=== PATIENT | female | born 1955 | race African-American/Black ===

== ENCOUNTER → 2016-09-28 | Outpatient (CLI) | payer OTHER ==
[2016-02-12 21:11] VITALS: BP 138/74
[~2016-09-28] MED LIST: ATOR20TA58 PO; CYAN1TAB5 SL; METF500T4 PO; MORP15TA PO; OXYC10TA PO; PROM25SU33 RC; SENN1TAB9 PO; VALS1TAB27 PO
--- NOTE | 2016-09-28 17:11 | KCIC ---
Bilateral digital screening mammograms with CAD: HISTORY COMPARISON Comparison is made to previous studies dated 09/19/2015 and 09/25/2014. FINDINGS Breast density category B. The skin and nipples show no abnormalities. No abnormal lymph nodes are seen in the axilla. The breast parenchyma shows scattered fibroglandular density. There continue be calcified and calcify nodules bilaterally consistent with degenerating fibroadenoma. There are no new dominant masses, suspicious calcifications or architectural distortions. Benign appearing calcifications are present IMPRESSION No evidence of malignancy. Recommend routine annual mammographic screening. This study was interpreted with the benefit of Computerized Aided Detection (CAD). Mammography is not 100% sensitive in detecting breast cancer. Therefore, a self breast exam and a clinical breast exam are very important. A negative mammogram does not negate a clinically suspicious finding and should not result in a delay in biopsying a clinically suspicious abnormality. BI-RADS category 2. Benign. This patient's information has been entered into a reminder system for the patient to be notified with the results of this examination and a target date for her next mammograms. Electronically signed by: Latisha Doan MD (Sep 28, 2016 17:10:17)
== END | disposition home or self-care (01) ==
LOC: KCIC MAMMO 10:13
PROVIDERS: ATTEND Nurse Practitioner Family
DX: Z12.31 Encounter for screening mammogram for malignant neoplasm of breast (principal)
CPT/HCPCS: G0202; 77067

== ENCOUNTER 2017-03-02 21:19 | Emergency (ER) | payer OTHER ==
[~2017-03-02] VITALS: Ht 160 cm; Wt 106.6 kg
[2017-03-02] MEDS ORDERED: DEXAMETHASONE SOD PHOS 20 MG/5 ML VIAL. IV ONE (21:45)
[2017-03-02] MEDS ORDERED: ONDANSETRON PF 4 MG/2 ML VIAL. IV ONE (21:45)
[2017-03-02] MEDS ORDERED: KETOROLAC TROMETHAMINE 30 MG/ML INJ. IV ONE (21:45)
[2017-03-02] MEDS ORDERED: diphenhydrAMINE 50 MG/ML VIAL IVP ONE (21:45)
[2017-03-02] MEDS ORDERED: IV NORMAL SALINE 1000ML BAG 1,000 ML IV ONE (21:45)
[2017-03-02] MEDS ORDERED: DIPH25CA58 PO (22:59)
[2017-03-02] MEDS ORDERED: ONDA4TAB10 PO (22:59)
[2017-03-02] MEDS ORDERED: NAPR500T PO (22:59)
--- NOTE | 2017-03-02 22:59 | PHYS DOC ---
Past Medical History Past Medical History: Anxiety, Diabetes-Type II, High Cholesterol, Hypertension Past Surgical History: Knee Replacement, Other Additional Past Surgical Histo: RIGHT KNEE SX, R&L BREAST BX; left knee Alcohol Use: Rarely Drug Use: None Adult General Chief Complaint Chief Complaint: HEADACHE HPI HPI Is a pleasant 62-year-old female with a week long history of continuous headache. She describes a headache as throbbing and aching beginning at the base of her neck with radiation to the top of her scalp and temples bilaterally is not worse of life or sudden onset in nature. She denies any problems with vision, problems with speech, weakness in her upper or lower extremities, denies any numbness and tingling in her upper and lower extremities denies any direct trauma. Patient also denies any URI symptoms like runny nose cough congestion or ear pain ear drainage tinnitus or eye discomfort. Patient was seen by an diesel engine specialist recently who prescribed an eyedrop for her. Her symptoms are not improved with his therapy. She denies any fevers, denies any chills, denies any nausea she does have some photophobia and audiophobia which does increase her pain. The pain is worsened by exertion and bending over. Pain presently is a 10 of 10. She mentioned in her history that her provider wanted to complete an MRI study of her brain although she had not gotten approval through his insurance company. She was hoping that they could be done today. Review of Systems Review of Systems Constitutional: Denies fever or chills [] Eyes: Denies change in visual acuity, redness, or eye pain [] HENT: Denies nasal congestion or sore throat [] Respiratory: Denies cough or shortness of breath [] Cardiovascular: No additional information not addressed in HPI [] GI: Denies abdominal pain, denies vomiting bloody stools or diarrhea. But she does complain of intermittent nausea : Denies dysuria or hematuria [] Musculoskeletal: Denies back pain or joint pain [] Integument: Denies rash or skin lesions [] Neurologic: sHe does complain of headache Endocrine: Denies polyuria or polydipsia [] Current Medications Current Medications Current Medications Medications (Trade) Dose Ordered Sig/Jossie Start Time Stop Time Status Last Admin Dose Admin Dexamethasone Sodium Phosphate (Decadron) 10 mg 1X ONCE 03/02/17 21:45 03/02/17 21:50 DC 03/02/17 22:10 10 MG Diphenhydramine HCl (Benadryl) 50 mg 1X ONCE 03/02/17 21:45 03/02/17 21:50 DC 03/02/17 22:10 50 MG Ketorolac Tromethamine (Toradol) 30 mg 1X ONCE 03/02/17 21:45 03/02/17 21:50 DC 03/02/17 22:10 30 MG Ondansetron HCl (Zofran) 4 mg 1X ONCE 03/02/17 21:45 03/02/17 21:50 DC 03/02/17 22:10 4 MG Sodium Chloride 1,000 ml @ 1,000 mls/hr 1X ONCE 03/02/17 21:45 03/02/17 22:44 DC 03/02/17 22:10 1,000 MLS/HR Allergies Allergies Allergies Coded Allergies Type Severity Reaction Last Updated Verified codeine Adverse Reaction Intermediate VOMITING 01/22/15 No Physical Exam Physical Exam This patient's vital signs were reviewed by me it is documented that she is mildly hypertensive but this is chronic in nature for this patient otherwise normal vital signs. Constitutional: Well developed, well nourished, no acute distress, non-toxic appearance. [] HENT: Normocephalic, atraumatic, bilateral external ears normal, oropharynx moist, no oral exudates, nose normal. [] Eyes: PERRLA, EOMI, conjunctiva normal, no discharge. She does demonstrate arcus senilis but no mid-fixed pupil dilation patient has no tenderness to palpation over the temporal arteries. Neck: Normal range of motion, supple, no stridor. She does have tenderness to palpation over the trapezius as it inserts onto the base of the skull on the left. It's pain is exactly is his experience in the past. There is no midline tenderness palpation [] Cardiovascular:Heart rate regular rhythm, no murmur [] Lungs & Thorax: Bilateral breath sounds clear to auscultation [] Skin: Warm, dry, no erythema, no rash. [] Back: No tenderness, no CVA tenderness. [] Extremities: No tenderness, no cyanosis, no clubbing, ROM intact, no edema. [] Neurologic: Alert and oriented X 3, normal motor function, normal sensory function, no focal deficits noted. [] Psychologic: Affect normal, judgement normal, mood normal. [] Current Patient Data Vital Signs Vital Signs Date Time Temp Pulse Resp B/P (MAP) Pulse Ox O2 Delivery O2 Flow Rate FiO2 03/02/17 23:00 75 20 148/76 (100) 99 Room Air 03/02/17 21:33 98.4 98.4 Radiology/Procedures Radiology/Procedures [] Course & Med Decision Making Course & Med Decision Making Pertinent Labs and Imaging studies reviewed. (See chart for details) Upon patient arrival patient's history and physical exam revealed probably a tension-like headache. This is not worse of life and sudden onset she is a normal neuro exam initial presentation. Patient denied discussed needing an MRI at this time that she was going to get completed at this time. I believe there is no clinical indication for emergently during her ER visit today. Patient has agreed to allow me to try some IV medications nonnarcotic in nature to address her headache. 10 PM she has just received the medications 10:54 PM patient's are equal and markedly better. She is agreed to follow up with her primary care doctor to schedule attempted outpatient MRI and referral to neurology for her headaches. 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 I do not believe she is having aneurysm, subarachnoid hemorrhage, intracranial tumor, doubt glaucoma, temporal arteritis, trauma, subdural hematoma, patient does not demonstrate any signs of sinusitis or otitis media otitis externa or other ENT infection. Impression: Tension headache, high blood pressure Disposition: PCP follow-up with referral to neurology. [] Dragon Disclaimer Dragon Disclaimer This electronic medical record was generated, in whole or in part, using a voice recognition dictation system. Departure Departure Impression: Primary Impression: Anxiety Additional Impression: Tension headache Disposition: 01 HOME, SELF-CARE Condition: IMPROVED Referrals: SANDRA CHINO APRN (PCP) Patient Instructions: Hypertension, Tension Headache Additional Instructions: Please return for any new or increasing symptoms, new focal neurologic deficits or if you have any questions or concerns. Scripts Ondansetron (ZOFRAN ODT) 4 Mg Tab.rapdis 4 MG PO BID Y for NAUSEA/VOMITING for 5 Days, #10 TAB Prov: ELLIOTT RODRIGUEZ MD 03/02/17 Naproxen (NAPROSYN) 500 Mg Tablet 1 TAB PO BID, #14 TAB 1 Refill Prov: ELLIOTT RODRIGUEZ MD 03/02/17 Diphenhydramine Hcl (BENADRYL) 25 Mg Capsule 1 CAP PO QHS, #30 CAP 1 Refill Prov: ELLIOTT RODRIGUEZ MD 03/02/17 Problem Qualifiers ELLIOTT RODRIGUEZ MD Mar 02, 2017 22:59
[2017-03-02 23:00] VITALS: BP 148/76
== END 2017-03-02 23:00 | disposition home or self-care (01) ==
LOC: ER 21:19
DX: G44.209 Tension-type headache, unspecified, not intractable (principal); F41.9 Anxiety disorder, unspecified; I10 Essential (primary) hypertension; E11.9 Type 2 diabetes mellitus without complications; E78.00 Pure hypercholesterolemia, unspecified; Z88.5 Allergy status to narcotic agent; Z96.659 Presence of unspecified artificial knee joint
CPT/HCPCS: 96361; 96374; 96375; 99285; J1100; J1200; J1885; J2405; J7030

== ENCOUNTER → 2017-03-09 | Outpatient (CLI) | payer OTHER ==
[2017-03-02 23:00] VITALS: BP 148/76
[~2017-03-09] MED LIST changes: +DIPH25CA58 PO; +NAPR500T PO; +ONDA4TAB10 PO
--- NOTE | 2017-03-09 16:24 | KCIC ---
MRI of the brain without contrast 03/09/2017 Clinical History: Headache and neck pain for 2 weeks. Technique: Unenhanced T1-weighted sagittal and axial, T2-weighted axial and coronal and FLAIR, gradient echo and diffusion-weighted axial images of the brain were obtained. Findings: No previous imaging studies are available for comparison. There is generalized parenchymal atrophy. Patchy and several small scattered areas of increased signal intensity are seen within the periventricular and subcortical white matter of both cerebral hemispheres on the FLAIR and T2-weighted images consistent with areas of mild small vessel ischemic disease. No acute parenchymal abnormality is seen. No extra-axial fluid collection is seen. There is no MRI evidence of acute ischemia/infarction. A 2 cm mucous retention cyst is seen involving the left maxillary sinus. A 7 mm mucous retention cyst is seen involving the sphenoid sinus. Mild mucosal thickening in seen scattered throughout the paranasal sinuses. There are minimal bilateral mastoid effusions. Normal flow voids are seen within the major vascular structures surrounding the brain parenchyma. Impression: No acute parenchymal abnormality is seen. Electronically signed by: Sathya Dobbins MD (03/09/2017 4:20 PM) [id number]
== END | disposition home or self-care (01) ==
LOC: KCIC MRI 14:55
PROVIDERS: ATTEND Family Medicine
DX: R51 Headache (principal); M54.12 Radiculopathy, cervical region
CPT/HCPCS: 70551

== ENCOUNTER 2017-06-13 03:31 | Emergency (ER) | payer OTHER ==
[~2017-06-13] VITALS: Ht 160 cm; Wt 106.6 kg
[2017-06-13 03:35] VITALS: BP 135/80
[2017-06-13] MEDS ORDERED: FLUORESCEIN OPHTH TEST STRIP. ONE (04:07)
--- NOTE | 2017-06-13 04:18 | PHYS DOC ---
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 Sees an eye doctor and takes antihistamine drops when necessary. Hasn't taken them for several months. Denies eye drainage or trauma. Review of Systems Review of Systems Constitutional: Denies fever or chills [] Eyes: Denies change in visual acuity, redness, or eye pain [] HENT: Denies nasal congestion or sore throat [] Respiratory: Denies cough or shortness of breath [] Cardiovascular: No additional information not addressed in HPI [] GI: Denies abdominal pain, nausea, vomiting, bloody stools or diarrhea [] : Denies dysuria or hematuria [] Musculoskeletal: Denies back pain or joint pain [] Integument: Denies rash or skin lesions [] Neurologic: Denies headache, focal weakness or sensory changes [] Endocrine: Denies polyuria or polydipsia [] Current Medications Current Medications Current Medications Medications (Trade) Dose Ordered Sig/Jossie Start Time Stop Time Status Last Admin Dose Admin Fluorescein Sodium (Ful-Maris) 1 strip STK-MED ONCE 06/13/17 04:07 06/13/17 04:08 DC Tetracaine HCl (Tetracaine) 1 drop 1X ONCE 06/13/17 04:30 06/13/17 04:31 06/13/17 04:09 1 DROP Allergies Allergies Allergies Coded Allergies Type Severity Reaction Last Updated Verified codeine Adverse Reaction Intermediate VOMITING 01/22/15 No Physical Exam Physical Exam Constitutional: Well developed, well nourished, no acute distress, non-toxic appearance. [] HENT: Normocephalic, atraumatic, bilateral external ears normal, oropharynx moist, no oral exudates, nose normal. [] Eyes: PERRLA, EOMI, conjunctiva normal, no discharge. Left eye shows an injected conjunctiva. Intraocular pressures were measured normal at 14 and equal. Fluorescein strip and dye instilled no uptake. Anterior chamber was clear no foreign body seen. Patient's symptoms resolved when the numbing medicine when in. No photophobia. Able to count fingers.[] Neck: Normal range of motion, no tenderness, supple, no stridor. [] Cardiovascular:Heart rate regular rhythm, no murmur [] Lungs & Thorax: Bilateral breath sounds clear to auscultation [] Abdomen: Bowel sounds normal, soft, no tenderness, no masses, no pulsatile masses. [] Skin: Warm, dry, no erythema, no rash. [] Back: No tenderness, no CVA tenderness. [] Extremities: No tenderness, no cyanosis, no clubbing, ROM intact, no edema. [] Neurologic: Alert and oriented X 3, normal motor function, normal sensory function, no focal deficits noted. [] Psychologic: Affect normal, judgement normal, mood normal. [] Current Patient Data Vital Signs Vital Signs Date Time Temp Pulse Resp B/P (MAP) Pulse Ox O2 Delivery O2 Flow Rate FiO2 06/13/17 03:35 98.4 88 22 98 Room Air 98.4 EKG EKG [] Radiology/Procedures Radiology/Procedures [] Course & Med Decision Making Course & Med Decision Making Pertinent Labs and Imaging studies reviewed. (See chart for details) Patient has diabetes this may represent retinopathy or floaters and I recommend she get follow-up no later than Wednesday with her primary eye doctor.[] Dragon Disclaimer Dragon Disclaimer This electronic medical record was generated, in whole or in part, using a voice recognition dictation system. Departure Departure Impression: Primary Impression: Left eye pain Disposition: HOME, SELF-CARE Condition: STABLE Referrals: SHAHEED DUNCAN MD (PCP) LUKAS PÉREZ MD Jun 13, 2017 04:18
[2017-06-13] MEDS ORDERED: FLUORESCEIN OPHTH TEST STRIP. OU ONE (04:30)
[2017-06-13] MEDS ORDERED: TETRACAINE 0.5% OPHTH SOLUTION 4ML BOTTLE. OS ONE (04:30)
== END 2017-06-13 04:26 | disposition home or self-care (01) ==
LOC: ER 03:31
DX: H57.12 Ocular pain, left eye (principal); F41.9 Anxiety disorder, unspecified; E78.00 Pure hypercholesterolemia, unspecified; I10 Essential (primary) hypertension; E11.36 Type 2 diabetes mellitus with diabetic cataract; Z88.5 Allergy status to narcotic agent
CPT/HCPCS: 99283

== ENCOUNTER → 2017-07-01 | Outpatient (CLI) | payer OTHER ==
[2017-06-13 03:35] VITALS: BP 135/80
[~2017-07-01] MED LIST changes: +NAPR-683 PO; -NAPR500T PO
[2017-07-01 15:16] LABS: BASO % 1 % (0-3); EOS % 2 % (0-3); HEMATOCRIT 35.3 % (36.0-47.0); HEMOGLOBIN 10.8 g/dL (12.0-15.5); LYMPH # 3.8 x10^3/uL (1.0-4.8); LYMPH % 52 % (24-48); MEAN CORPUSCULAR HEMOGLOBIN 21 pg (25-35); MEAN CORPUSCULAR HGB CONC 31 g/dL (31-37); MEAN CORPUSCULAR VOLUME 69 fL (79-100); MONO % 7 % (0-9); NEUT % 39 % (31-73); PLATELET COUNT 223 x10^3/uL (140-400); RED BLOOD COUNT 5.15 x10^6/uL (3.50-5.40); RED CELL DISTRIBUTION WIDTH 18.7 % (11.5-14.5); WHITE BLOOD COUNT 7.3 x10^3/uL (4.0-11.0)
[2017-07-01 15:33] LABS: ANISOCYTOSIS SLIGHT; HYPOCHROMIA MOD; MICROCYTOSIS MOD; PLT ESTIMATE ADEQUATE (ADEQUATE); POIKILOCYTOSIS SLIGHT
[2017-07-01 15:34] LABS: OVALOCYTES OCC; TARGET CELLS FEW
[2017-07-01 15:40] LABS: ALBUMIN 3.8 g/dL (3.4-5.0); CALCIUM 9.5 mg/dL (8.5-10.1); CREATININE 0.7 mg/dL (0.6-1.0); GFR 101.9; POTASSIUM 3.7 mmol/L (3.5-5.1); TOTAL BILIRUBIN 0.4 mg/dL (0.2-1.0); TOTAL PROTEIN 7.8 g/dL (6.4-8.2)
== END | disposition home or self-care (01) ==
LOC: LAB 15:03
PROVIDERS: ATTEND Psychiatry & Neurology Neurology
DX: G43.019 Migraine without aura, intractable, without status migrainosus (principal)
CPT/HCPCS: 36415; 80053; 85025; 85651

== ENCOUNTER → 2017-11-23 | Outpatient (CLI) | payer OTHER | END | disposition home or self-care (01) | LOC: KCIC MAMMO 09:03 | DX: Z12.31 Encounter for screening mammogram for malignant neoplasm of breast (principal) | CPT/HCPCS: 77067 ==

== ENCOUNTER 2018-03-10 23:15 | Emergency (ER) | payer OTHER ==
[2018-03-11 01:48] LABS: ADD MAN DIFF? NO
[2018-03-11 01:51] LABS: BASO # 0.1 x10^3/uL (0.0-0.2); BASO % 1 % (0-3); EOS # 0.2 x10^3/uL (0.0-0.7); EOS % 2 % (0-3); HEMATOCRIT 34.2 % (36.0-47.0); HEMOGLOBIN 10.8 g/dL (12.0-15.5); LYMPH # 3.8 x10^3/uL (1.0-4.8); LYMPH % 47 % (24-48); MEAN CORPUSCULAR HEMOGLOBIN 21 pg (25-35); MEAN CORPUSCULAR HGB CONC 32 g/dL (31-37); MEAN CORPUSCULAR VOLUME 67 fL (79-100); MONO # 0.5 x10^3/uL (0.0-1.1); MONO % 6 % (0-9); NEUT # 3.5 x10^3uL (1.8-7.7); NEUT % 44 % (31-73); PLATELET COUNT 229 x10^3/uL (140-400); RED BLOOD COUNT 5.07 x10^6/uL (3.50-5.40); RED CELL DISTRIBUTION WIDTH 20.1 % (11.5-14.5)
[2018-03-11 02:02] LABS: ANION GAP 7 (6-14); BLOOD UREA NITROGEN 16 mg/dL (7-20); BUN/CREATININE RATIO 23 (6-20); CALCIUM 9.7 mg/dL (8.5-10.1); CARBON DIOXIDE 31 mmol/L (21-32); CHLORIDE 105 mmol/L (98-107); CREATININE 0.7 mg/dL (0.6-1.0); GFR 101.6; GLUCOSE 135 mg/dL (70-99); POTASSIUM 3.9 mmol/L (3.5-5.1); SODIUM 143 mmol/L (136-145)
[2018-03-11 02:09] LABS: ALBUMIN 3.6 g/dL (3.4-5.0); ALBUMIN/GLOBULIN RATIO 0.9 (1.0-1.7); ALK PHOS 100 U/L (46-116); ALT (SGPT) 21 U/L (14-59); AST (SGOT) 14 U/L (15-37); TOTAL BILIRUBIN 0.2 mg/dL (0.2-1.0); TOTAL PROTEIN 7.6 g/dL (6.4-8.2)
[2018-03-11 02:18] LABS: TROPONINI < 0.017 ng/mL (0.000-0.055)
[2018-03-11 02:19] LABS: CKMB MASS < 0.5 ng/mL (0.0-3.6); CREATINE KINASE 131 U/L (26-192)
[2018-03-11 04:48] LABS: PLT ESTIMATE ADEQUATE (ADEQUATE)
[2018-03-11 04:49] LABS: ANISOCYTOSIS MOD; HYPOCHROMIA MOD; MICROCYTOSIS MOD
== END 2018-03-11 05:10 | disposition home or self-care (01) ==
LOC: ER 23:15
DX: R00.2 Palpitations (principal); I10 Essential (primary) hypertension; E11.9 Type 2 diabetes mellitus without complications; Z88.5 Allergy status to narcotic agent
CPT/HCPCS: 36415; 80053; 82553; 83735; 84484; 85025; 93005; 99285-25

== ENCOUNTER → 2018-04-25 | Outpatient (CLI) | payer OTHER ==
[2018-03-11 04:19] VITALS: BP 133/61
[~2018-04-25] MED LIST changes: +METF500T16 PO; -METF500T4 PO
--- NOTE | 2018-04-25 16:53 | KCIC ---
3 view sacrum HISTORY: Coccyx pain for one week. No known injury. FINDINGS: Mild irregularity of the distal sacrum on the lateral view. Note is made of a transitional vertebral body at the lumbosacral junction. Calcifications in the pelvis may be due to uterine fibroid. There are also phleboliths and vascular calcification. IMPRESSION: Mild irregularity of the distal sacrum on the lateral view, could be a nondisplaced fracture. CT or MR scan of the sacrum could further evaluate. Electronically signed by: Shivam Lewis MD (04/25/2018 4:50 PM) [facility]
== END | disposition home or self-care (01) ==
LOC: KCIC 14:54
PROVIDERS: ATTEND Nurse Practitioner Family
DX: M53.3 Sacrococcygeal disorders, not elsewhere classified (principal); I87.8 Other specified disorders of veins; I10 Essential (primary) hypertension; E11.9 Type 2 diabetes mellitus without complications; E78.00 Pure hypercholesterolemia, unspecified; G43.019 Migraine without aura, intractable, without status migrainosus; Z96.652 Presence of left artificial knee joint; Z88.5 Allergy status to narcotic agent
CPT/HCPCS: 72220

== ENCOUNTER 2018-05-13 10:58 | Inpatient (IN) | payer OTHER ==
[~2018-05-13] VITALS: Ht 160 cm; Wt 106.6 kg
--- NOTE | 2018-05-13 11:59 | PHYS DOC ---
Past Medical History Past Medical History: Diabetes-Type II, Hypertension Additional Past Medical Histor: cataracts Past Surgical History: No Surgical History Additional Past Surgical Histo: RIGHT KNEE SX, R&L BREAST BX; left knee Alcohol Use: None Drug Use: None Adult General Chief Complaint Chief Complaint: DIZZY/LIGHT HEADED HPI HPI Patient is a 63 year old diabetic who presents with intermittent dizziness upon waking today. Dizziness is described as being off balance is associated with nausea. Symptoms are significant improved with remaining still and are worse when standing and moving head.. Patient states symptoms first noticed upon awaking arising to stand. Patient fell backwards landing back on the bed. Denies headache, tinnitus, loss of hearing. Denies neck pain, palpitations, chest pain or shortness of breath. No fever, chills, sweats. Abdominal pain, flank pain, constipation or diarrhea. No range of motion vision, or focal extremity weakness or loss of sensation. No other acute symptoms or complaints. [] Review of Systems Review of Systems Review symptoms as per history of present illness. All other review symptoms are negative. All other systems were reviewed and found to be within normal limits, except as documented in this note. Current Medications Current Medications Current Medications Medications (Trade) Dose Ordered Sig/Jossie Start Time Stop Time Status Last Admin Dose Admin Lorazepam (Ativan) 1 mg 1X ONCE 05/13/18 13:00 05/13/18 13:01 DC 05/13/18 12:53 1 MG Allergies Allergies Allergies Coded Allergies Type Severity Reaction Last Updated Verified codeine Adverse Reaction Intermediate VOMITING 01/22/15 No Physical Exam Physical Exam Constitutional: Well developed, well nourished, no acute distress, non-toxic appearance. [] HENT: Normocephalic, atraumatic, bilateral external ears normal, nose normal. [] Eyes: PERRLA, EOMI, conjunctiva normal, no discharge. [] Neck: Normal range of motion, no tenderness. [] Cardiovascular:Heart rate regular rhythm, no murmur [] Lungs & Thorax: Bilateral breath sounds clear. [] Abdomen: Bowel sounds normal, soft, no tenderness. [] Skin: Warm, dry. [] Back: No tenderness. [] Extremities: No tenderness, no cyanosis, no clubbing, ROM intact, no edema. [] Neurologic: Alert and oriented X 3, normal motor function, normal sensory function, no focal deficits noted. [] Psychologic: Affect normal, judgement normal, mood normal. [] Current Patient Data Vital Signs Vital Signs Date Time Temp Pulse Resp B/P (MAP) Pulse Ox O2 Delivery O2 Flow Rate FiO2 05/13/18 11:15 97.7 67 22 167/77 (107) 99 Room Air 97.7 Lab Values Laboratory Tests Test 05/13/18 10:46 05/13/18 12:22 White Blood Count 5.8 x10^3/uL (4.0-11.0) Red Blood Count 4.95 x10^6/uL (3.50-5.40) Hemoglobin 10.7 g/dL (12.0-15.5) L Hematocrit 32.6 % (36.0-47.0) L Mean Corpuscular Volume 66 fL (79-100) L Mean Corpuscular Hemoglobin 22 pg (25-35) L Mean Corpuscular Hemoglobin Concent 33 g/dL (31-37) Red Cell Distribution Width 18.8 % (11.5-14.5) H Platelet Count 214 x10^3/uL (140-400) Neutrophils (%) (Auto) 52 % (31-73) Lymphocytes (%) (Auto) 40 % (24-48) Monocytes (%) (Auto) 6 % (0-9) Eosinophils (%) (Auto) 1 % (0-3) Basophils (%) (Auto) 2 % (0-3) Neutrophils # (Auto) 3.0 x10^3uL (1.8-7.7) Lymphocytes # (Auto) 2.3 x10^3/uL (1.0-4.8) Monocytes # (Auto) 0.3 x10^3/uL (0.0-1.1) Eosinophils # (Auto) 0.0 x10^3/uL (0.0-0.7) Basophils # (Auto) 0.1 x10^3/uL (0.0-0.2) Platelet Estimate Pending Sodium Level 143 mmol/L (136-145) Potassium Level 3.5 mmol/L (3.5-5.1) Chloride Level 105 mmol/L (98-107) Carbon Dioxide Level 30 mmol/L (21-32) Anion Gap 8 (6-14) Blood Urea Nitrogen 12 mg/dL (7-20) Creatinine 0.5 mg/dL (0.6-1.0) L Estimated GFR (Cockcroft-Gault) 149.8 BUN/Creatinine Ratio 24 (6-20) H Glucose Level 162 mg/dL (70-99) H Calcium Level 9.4 mg/dL (8.5-10.1) Total Bilirubin 0.4 mg/dL (0.2-1.0) Aspartate Amino Transferase (AST) 11 U/L (15-37) L Alanine Aminotransferase (ALT) 22 U/L (14-59) Alkaline Phosphatase 93 U/L (46-116) Troponin I Quantitative < 0.017 ng/mL (0.000-0.055) Total Protein 7.2 g/dL (6.4-8.2) Albumin 3.1 g/dL (3.4-5.0) L Albumin/Globulin Ratio 0.8 (1.0-1.7) L Thyroid Stimulating Hormone (TSH) 0.024 uIU/mL (0.358-3.74) L Urine Collection Type Unknown Urine Color Yellow Urine Clarity Clear Urine pH 6.0 Urine Specific Maurice 1.025 Urine Protein Negative mg/dL (NEG-TRACE) Urine Glucose (UA) Negative mg/dL (NEG) Urine Ketones (Stick) Negative mg/dL (NEG) Urine Blood Negative (NEG) Urine Nitrite Negative (NEG) Urine Bilirubin Negative (NEG) Urine Urobilinogen Dipstick 1.0 mg/dL (0.2 mg/dL) Urine Leukocyte Esterase Negative (NEG) Urine RBC 0 /HPF (0-2) Urine WBC 1-4 /HPF (0-4) Urine Squamous Epithelial Cells Mod /LPF Urine Bacteria 0 /HPF (0-FEW) Urine Mucus Mod /LPF Laboratory Tests 05/13/18 10:46 Laboratory Tests 05/13/18 10:46 EKG EKG [EKG: Reviewed] Radiology/Procedures Radiology/Procedures [CT head: NAD] Course & Med Decision Making Course & Med Decision Making Pertinent Labs and Imaging studies reviewed. (See chart for details) [No focal neurologic symptoms on exam. Patient walks with steady gait. Does complain of meclizine vertigo, symptoms improved with Ativan. Will recommend meclizine when necessary, and close PCP follow-up. Home safety instructions and fall precautions reviewed. Patient and daughter verbalized understanding agreement discharge instructions prior to departure.] Dragon Disclaimer Dragon Disclaimer This electronic medical record was generated, in whole or in part, using a voice recognition dictation system. Departure Departure Impression: Primary Impression: Dizziness Disposition: 01 HOME, SELF-CARE Condition: GOOD Referrals: SANDRA CHINO APRN (PCP) Patient Instructions: Vertigo, [id number] Additional Instructions: Please increase fluids and take meclizine as needed for dizziness. Please be careful when standing and walking as you are increased risk of fall and injury. Return to the ED if new or worsening symptoms. Scripts Meclizine Hcl (MECLIZINE HCL) 25 Mg Tablet 1 TAB PO TID, #20 TAB Prov: MONTRELL MENDEZ DO 05/13/18 MONTRELL MENDEZ DO May 13, 2018 11:59
[2018-05-13 12:24] LABS: BASO # 0.1 x10^3/uL (0.0-0.2); BASO % 2 % (0-3); EOS % 1 % (0-3); HEMATOCRIT 32.6 % (36.0-47.0); HEMOGLOBIN 10.7 g/dL (12.0-15.5); LYMPH # 2.3 x10^3/uL (1.0-4.8); LYMPH % 40 % (24-48); MEAN CORPUSCULAR HEMOGLOBIN 22 pg (25-35); MEAN CORPUSCULAR HGB CONC 33 g/dL (31-37); MEAN CORPUSCULAR VOLUME 66 fL (79-100); MONO # 0.3 x10^3/uL (0.0-1.1); MONO % 6 % (0-9); NEUT % 52 % (31-73); PLATELET COUNT 214 x10^3/uL (140-400); RED BLOOD COUNT 4.95 x10^6/uL (3.50-5.40); RED CELL DISTRIBUTION WIDTH 18.8 % (11.5-14.5); WHITE BLOOD COUNT 5.8 x10^3/uL (4.0-11.0)
--- NOTE | 2018-05-13 12:26 | RAD ---
CT HEAD WO CONTRAST Indication: quiros dizzy htn no prev Exposure: One or more of the following individualized dose reduction techniques were utilized for this examination: 1. Automated exposure control 2. Adjustment of the mA and/or kV according to patient size 3. Use of iterative reconstruction technique. Comparison: None are available. Contrast: None FINDINGS: Posterior fossa is unremarkable. No evidence of acute intracranial hemorrhage or abnormal extra-axial fluid collection. No evidence of mass effect or midline shift. Mildly prominent ventricles and sulci compatible with atrophy. Mild arterial calcifications. Visualized orbits are unremarkable. Rounded opacity in the partially seen left maxillary sinus compatible with a polyp or mucous retention cyst. Smaller similar structure identified in the right sphenoid sinus. No acute calvarial abnormality. Impression: 1. Negative for acute intracranial hemorrhage or mass effect. 2. Left maxillary right sphenoid sinus nodules likely polyps or mucous retention cysts. Polypoid mucosal thickening less likely. Electronically signed by: Shivam Lewis MD (05/13/2018 12:22 PM) [facility]
--- NOTE | 2018-05-13 12:32 | RAD ---
EXAM: CHEST 1 VIEW History: Nausea, dizziness COMPARISON: 02/12/2016 TECHNIQUE: Single portable radiograph of the chest FINDINGS: The cardiac silhouette is unremarkable. The lungs are clear bilaterally. The costophrenic sulci are clear and well demarcated. IMPRESSION: No radiographic evidence of an acute cardiopulmonary process. Electronically signed by: Michael Reveles MD (05/13/2018 12:28 PM) [id number]
[2018-05-13 12:34] LABS: BILIRUBIN,URINE NEGATIVE (NEG); CLARITY,URINE CLEAR; COLOR,URINE YELLOW; NITRITE,URINE NEGATIVE (NEG); PROTEIN,URINE NEGATIVE (NEG-TRACE)
[2018-05-13 12:38] LABS: CALCIUM 9.4 mg/dL (8.5-10.1); CREATININE 0.5 mg/dL (0.6-1.0); GFR 149.8; POTASSIUM 3.5 mmol/L (3.5-5.1)
[2018-05-13 12:44] LABS: ALBUMIN 3.1 g/dL (3.4-5.0); ALBUMIN/GLOBULIN RATIO 0.8 (1.0-1.7); TOTAL BILIRUBIN 0.4 mg/dL (0.2-1.0); TOTAL PROTEIN 7.2 g/dL (6.4-8.2)
[2018-05-13 12:50] LABS: SQUAMOUS EPITHELIAL CELL,UR MOD /LPF
[2018-05-13 12:51] LABS: BACTERIA,URINE 0 /HPF (0-FEW); RBC,URINE 0 /HPF (0-2)
[2018-05-13] MEDS ORDERED: MECL25TA3 PO (13:26)
--- NOTE | 2018-05-13 13:32 | EKG ---
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
[2018-05-13 13:53] LABS: ANISOCYTOSIS SLIGHT; HYPOCHROMIA MOD; MICROCYTOSIS SLIGHT; PLT ESTIMATE ADEQUATE (ADEQUATE)
[2018-05-13 13:54] LABS: TARGET CELLS FEW
[2018-05-13] MEDS: IV NORMAL SALINE 1000ML BAG 1,000 ML IV SCH ×2 (15:36→22:47)
[2018-05-13] MEDS ORDERED: ONDANSETRON PF 4 MG/2 ML VIAL. IV PRN (15:45)
[2018-05-13] MEDS: MECLIZINE HCL 12.5 MG TABLET. PO SCH ×2 (15:52→20:23)
[2018-05-13] MEDS ORDERED: CLON0.5T PO (16:00)
[2018-05-13] MEDS ORDERED: AMLO5TAB7 PO (16:00)
[2018-05-13 16:48] VITALS: BP 134/67
--- NOTE | 2018-05-13 18:40 | HP ---
ADMIT DATE: 05/13/2018 CHIEF COMPLAINT: Dizziness. HISTORY OF PRESENT ILLNESS: The patient is a pleasant 63-year-old female who presented to the ER with dizziness. They gave her some Antivert and fluids. They thought she is going to able to get home, but then, she stood up and got dizzy and nauseated. I discussed the case with ER physician. We decided to go ahead admit her and consult Dr. Booker for a second opinion. PAST MEDICAL HISTORY: Diabetes, hypertension, cataracts, knee surgery, breast biopsy. ALLERGIES: CODEINE. FAMILY HISTORY: Hypertension. SOCIAL HISTORY: She is retired. She does not drink, smoke or take drugs. Has 2 daughters and 1 son. MEDICATIONS: Reviewed, please refer to the MRAD. REVIEW OF SYSTEMS: GENERAL: No history of weight change, weakness or fevers. SKIN: No bruising, hair changes or rashes. EYES: No blurred, double or loss of vision. NOSE AND THROAT: No history of nosebleeds, hoarseness or sore throat. HEART: No history of palpitations, chest pain or shortness of breath on exertion. LUNGS: Denies cough, hemoptysis, wheezing or shortness of breath. GASTROINTESTINAL: Denies changes in appetite, nausea, vomiting, diarrhea or constipation. GENITOURINARY: No history of frequency, urgency, hesitancy or nocturia. NEUROLOGIC: She complains of dizziness. PSYCHIATRIC: No history of panic, anxiety or depression. ENDOCRINE: No history of heat or cold intolerance, polyuria or polydipsia. EXTREMITIES: Denies muscle weakness, joint pain, pain on walking or stiffness. PHYSICAL EXAMINATION: VITAL SIGNS: Temperature afebrile, pulse 70, respirations 18, blood pressure 134/67, O2 sat 99% on room air. GENERAL: She is alert, cooperative. HEART: Distant S1, S2. ABDOMEN: Soft, a little distended. EXTREMITIES: Trace edema. SKIN: No obvious rashes. ENDOCRINE: No thyromegaly. LYMPHATICS: No cervical nodes. HEMATOPOIETIC: No bruising. LABORATORY DATA: Hematology: Her hemoglobin is a little low at 10.7, but otherwise, her CBC is normal. Electrolytes are normal other than a slightly low creatinine of 0.5, glucose is a little high at [address] troponin is 0. CT of the head was negative other than some maxillary polyps and maybe sinusitis. Chest x-ray was negative. Urinalysis negative. ASSESSMENT AND PLAN: Vertigo, suspect vestibulitis with the inner ear disturbance. The patient has been admitted. We will give her p.r.n. Antivert, consult Dr. Booker. I suspect she will get an MRI of the brain and we will await Dr. Booker to opinion on that. For now, we will get her on her home medications, some IV fluids, p.r.n. meclizine. EVANS DORAN DO DR: LARRY/angela JOB#: [id number] / [id number] SANDRA Quarles APRN
[2018-05-13 19:46] VITALS: BP 140/75
[2018-05-13] MEDS ORDERED: clonazePAM 0.5 MG TABLET PO PRN (22:15)
[2018-05-13] MEDS ORDERED: DEXTROSE 50% 25 GM / 50ML DISP.SYRIN. IV PRN (22:15)
[2018-05-13] MEDS: ATORVASTATIN CALCIUM 20 MG TABLET PO SCH (22:47)
[2018-05-13 23:00] VITALS: BP 127/59
[2018-05-14] MEDS: MECLIZINE HCL 12.5 MG TABLET. PO SCH ×6 (00:14→20:05)
[2018-05-14 03:18] VITALS: BP 114/62
[2018-05-14 04:38] LABS: BASO # 0.1 x10^3/uL (0.0-0.2); BASO % 1 % (0-3); EOS # 0.1 x10^3/uL (0.0-0.7); EOS % 1 % (0-3); HEMATOCRIT 31.6 % (36.0-47.0); HEMOGLOBIN 10.2 g/dL (12.0-15.5); LYMPH # 3.6 x10^3/uL (1.0-4.8); LYMPH % 49 % (24-48); MEAN CORPUSCULAR HEMOGLOBIN 22 pg (25-35); MEAN CORPUSCULAR HGB CONC 32 g/dL (31-37); MEAN CORPUSCULAR VOLUME 67 fL (79-100); MONO # 0.6 x10^3/uL (0.0-1.1); MONO % 8 % (0-9); NEUT # 3.1 x10^3uL (1.8-7.7); NEUT % 42 % (31-73); PLATELET COUNT 168 x10^3/uL (140-400); RED BLOOD COUNT 4.74 x10^6/uL (3.50-5.40); RED CELL DISTRIBUTION WIDTH 18.5 % (11.5-14.5); WHITE BLOOD COUNT 7.4 x10^3/uL (4.0-11.0)
[2018-05-14 04:55] LABS: ALBUMIN 2.8 g/dL (3.4-5.0); ALBUMIN/GLOBULIN RATIO 0.7 (1.0-1.7); CREATININE 0.5 mg/dL (0.6-1.0); GFR 149.8; POTASSIUM 3.3 mmol/L (3.5-5.1); TOTAL BILIRUBIN 0.3 mg/dL (0.2-1.0); TOTAL PROTEIN 6.6 g/dL (6.4-8.2)
[2018-05-14] MEDS: IV NORMAL SALINE 1000ML BAG 1,000 ML IV SCH ×2 (05:43→12:10)
[2018-05-14 07:28] VITALS: BP 143/65
[2018-05-14] MEDS: INSULIN LISPRO 300 UNITS/3 ML INSULN.PEN. SQ SCH ×3 (08:00→17:00)
[2018-05-14] MEDS: amLODIPine BESYLATE 5 MG TABLET PO SCH (08:43)
[2018-05-14] MEDS: LOSARTAN POTASSIUM 50 MG TABLET. PO SCH (08:43)
[2018-05-14] MEDS: hydroCHLOROthiazide 12.5 MG CAPSULE PO SCH (08:43)
--- NOTE | 2018-05-14 11:02 | PDOC ---
PROGRESS NOTES Chief Complaint Chief Complaint presented to ER with Vertigo, suspect vestibulitis with the inner ear disturbance. feels better today but still dizzy and nausea with sudden movement History of Present Illness History of Present Illness 1-vertigo vestibulitis 2-sinus retention cyst and mild sinusitis started Augmentin 3-HTN 4-DM improving , await neurology input expect home tomorrow Vitals Vitals Vital Signs Date Time Temp Pulse Resp B/P (MAP) Pulse Ox O2 Delivery O2 Flow Rate FiO2 05/14/18 08:43 83 143/65 05/14/18 07:30 Room Air 05/14/18 07:28 98.0 20 100 98.0 Physical Exam General: Alert, Oriented X3, Cooperative Heart: Regular rate, Normal S1, Normal S2 Lungs: Clear Abdomen: Normal bowel sounds, Soft Extremities: No clubbing, No cyanosis Skin: No significant lesion Labs LABS Laboratory Tests Test 05/13/18 12:22 05/13/18 17:22 05/13/18 20:50 05/14/18 03:40 Urine Collection Type Unknown Urine Color Yellow Urine Clarity Clear Urine pH 6.0 Urine Specific [place] 1.025 Urine Protein Negative mg/dL (NEG-TRACE) Urine Glucose (UA) Negative mg/dL (NEG) Urine Ketones (Stick) Negative mg/dL (NEG) Urine Blood Negative (NEG) Urine Nitrite Negative (NEG) Urine Bilirubin Negative (NEG) Urine Urobilinogen Dipstick 1.0 mg/dL (0.2 mg/dL) Urine Leukocyte Esterase Negative (NEG) Urine RBC 0 /HPF (0-2) Urine WBC 1-4 /HPF (0-4) Urine Squamous Epithelial Cells Mod /LPF Urine Bacteria 0 /HPF (0-FEW) Urine Mucus Mod /LPF Glucose (Fingerstick) 192 mg/dL (70-99) 225 mg/dL (70-99) White Blood Count 7.4 x10^3/uL (4.0-11.0) Red Blood Count 4.74 x10^6/uL (3.50-5.40) Hemoglobin 10.2 g/dL (12.0-15.5) Hematocrit 31.6 % (36.0-47.0) Mean Corpuscular Volume 67 fL (79-100) Mean Corpuscular Hemoglobin 22 pg (25-35) Mean Corpuscular Hemoglobin Concent 32 g/dL (31-37) Red Cell Distribution Width 18.5 % (11.5-14.5) Platelet Count 168 x10^3/uL (140-400) Neutrophils (%) (Auto) 42 % (31-73) Lymphocytes (%) (Auto) 49 % (24-48) Monocytes (%) (Auto) 8 % (0-9) Eosinophils (%) (Auto) 1 % (0-3) Basophils (%) (Auto) 1 % (0-3) Neutrophils # (Auto) 3.1 x10^3uL (1.8-7.7) Lymphocytes # (Auto) 3.6 x10^3/uL (1.0-4.8) Monocytes # (Auto) 0.6 x10^3/uL (0.0-1.1) Eosinophils # (Auto) 0.1 x10^3/uL (0.0-0.7) Basophils # (Auto) 0.1 x10^3/uL (0.0-0.2) Sodium Level 143 mmol/L (136-145) Potassium Level 3.3 mmol/L (3.5-5.1) Chloride Level 107 mmol/L (98-107) Carbon Dioxide Level 28 mmol/L (21-32) Anion Gap 8 (6-14) Blood Urea Nitrogen 13 mg/dL (7-20) Creatinine 0.5 mg/dL (0.6-1.0) Estimated GFR (Cockcroft-Gault) 149.8 BUN/Creatinine Ratio 26 (6-20) Glucose Level 131 mg/dL (70-99) Calcium Level 9.0 mg/dL (8.5-10.1) Total Bilirubin 0.3 mg/dL (0.2-1.0) Aspartate Amino Transf (AST/SGOT) 10 U/L (15-37) Alanine Aminotransferase (ALT/SGPT) 21 U/L (14-59) Alkaline Phosphatase 88 U/L (46-116) Total Protein 6.6 g/dL (6.4-8.2) Albumin 2.8 g/dL (3.4-5.0) Albumin/Globulin Ratio 0.7 (1.0-1.7) Assessment and Plan Assessmemt and Plan Problems Medical Problems: (1) Dizziness Status: Acute Comment Review of Relevant I have reviewed the following items rudy (where applicable) has been applied. Labs Laboratory Tests Test 05/13/18 10:46 05/13/18 12:22 05/13/18 17:22 05/13/18 20:50 White Blood Count 5.8 x10^3/uL (4.0-11.0) Red Blood Count 4.95 x10^6/uL (3.50-5.40) Hemoglobin 10.7 g/dL (12.0-15.5) Hematocrit 32.6 % (36.0-47.0) Mean Corpuscular Volume 66 fL (79-100) Mean Corpuscular Hemoglobin 22 pg (25-35) Mean Corpuscular Hemoglobin Concent 33 g/dL (31-37) Red Cell Distribution Width 18.8 % (11.5-14.5) Platelet Count 214 x10^3/uL (140-400) Neutrophils (%) (Auto) 52 % (31-73) Lymphocytes (%) (Auto) 40 % (24-48) Monocytes (%) (Auto) 6 % (0-9) Eosinophils (%) (Auto) 1 % (0-3) Basophils (%) (Auto) 2 % (0-3) Neutrophils # (Auto) 3.0 x10^3uL (1.8-7.7) Lymphocytes # (Auto) 2.3 x10^3/uL (1.0-4.8) Monocytes # (Auto) 0.3 x10^3/uL (0.0-1.1) Eosinophils # (Auto) 0.0 x10^3/uL (0.0-0.7) Basophils # (Auto) 0.1 x10^3/uL (0.0-0.2) Platelet Estimate Adequate (ADEQUATE) Hypochromasia Mod Anisocytosis Slight Microcytosis Slight Target Cells Few Sodium Level 143 mmol/L (136-145) Potassium Level 3.5 mmol/L (3.5-5.1) Chloride Level 105 mmol/L (98-107) Carbon Dioxide Level 30 mmol/L (21-32) Anion Gap 8 (6-14) Blood Urea Nitrogen 12 mg/dL (7-20) Creatinine 0.5 mg/dL (0.6-1.0) Estimated GFR (Cockcroft-Gault) 149.8 BUN/Creatinine Ratio 24 (6-20) Glucose Level 162 mg/dL (70-99) Calcium Level 9.4 mg/dL (8.5-10.1) Total Bilirubin 0.4 mg/dL (0.2-1.0) Aspartate Amino Transf (AST/SGOT) 11 U/L (15-37) Alanine Aminotransferase (ALT/SGPT) 22 U/L (14-59) Alkaline Phosphatase 93 U/L (46-116) Troponin I Quantitative < 0.017 ng/mL (0.000-0.055) Total Protein 7.2 g/dL (6.4-8.2) Albumin 3.1 g/dL (3.4-5.0) Albumin/Globulin Ratio 0.8 (1.0-1.7) Thyroid Stimulating Hormone (TSH) 0.024 uIU/mL (0.358-3.74) Urine Collection Type Unknown Urine Color Yellow Urine Clarity Clear Urine pH 6.0 Urine Specific [place] 1.025 Urine Protein Negative mg/dL (NEG-TRACE) Urine Glucose (UA) Negative mg/dL (NEG) Urine Ketones (Stick) Negative mg/dL (NEG) Urine Blood Negative (NEG) Urine Nitrite Negative (NEG) Urine Bilirubin Negative (NEG) Urine Urobilinogen Dipstick 1.0 mg/dL (0.2 mg/dL) Urine Leukocyte Esterase Negative (NEG) Urine RBC 0 /HPF (0-2) Urine WBC 1-4 /HPF (0-4) Urine Squamous Epithelial Cells Mod /LPF Urine Bacteria 0 /HPF (0-FEW) Urine Mucus Mod /LPF Glucose (Fingerstick) 192 mg/dL (70-99) 225 mg/dL (70-99) Test 05/14/18 03:40 White Blood Count 7.4 x10^3/uL (4.0-11.0) Red Blood Count 4.74 x10^6/uL (3.50-5.40) Hemoglobin 10.2 g/dL (12.0-15.5) Hematocrit 31.6 % (36.0-47.0) Mean Corpuscular Volume 67 fL (79-100) Mean Corpuscular Hemoglobin 22 pg (25-35) Mean Corpuscular Hemoglobin Concent 32 g/dL (31-37) Red Cell Distribution Width 18.5 % (11.5-14.5) Platelet Count 168 x10^3/uL (140-400) Neutrophils (%) (Auto) 42 % (31-73) Lymphocytes (%) (Auto) 49 % (24-48) Monocytes (%) (Auto) 8 % (0-9) Eosinophils (%) (Auto) 1 % (0-3) Basophils (%) (Auto) 1 % (0-3) Neutrophils # (Auto) 3.1 x10^3uL (1.8-7.7) Lymphocytes # (Auto) 3.6 x10^3/uL (1.0-4.8) Monocytes # (Auto) 0.6 x10^3/uL (0.0-1.1) Eosinophils # (Auto) 0.1 x10^3/uL (0.0-0.7) Basophils # (Auto) 0.1 x10^3/uL (0.0-0.2) Sodium Level 143 mmol/L (136-145) Potassium Level 3.3 mmol/L (3.5-5.1) Chloride Level 107 mmol/L (98-107) Carbon Dioxide Level 28 mmol/L (21-32) Anion Gap 8 (6-14) Blood Urea Nitrogen 13 mg/dL (7-20) Creatinine 0.5 mg/dL (0.6-1.0) Estimated GFR (Cockcroft-Gault) 149.8 BUN/Creatinine Ratio 26 (6-20) Glucose Level 131 mg/dL (70-99) Calcium Level 9.0 mg/dL (8.5-10.1) Total Bilirubin 0.3 mg/dL (0.2-1.0) Aspartate Amino Transf (AST/SGOT) 10 U/L (15-37) Alanine Aminotransferase (ALT/SGPT) 21 U/L (14-59) Alkaline Phosphatase 88 U/L (46-116) Total Protein 6.6 g/dL (6.4-8.2) Albumin 2.8 g/dL (3.4-5.0) Albumin/Globulin Ratio 0.7 (1.0-1.7) Laboratory Tests Test 05/13/18 12:22 05/13/18 17:22 05/13/18 20:50 05/14/18 03:40 Urine Collection Type Unknown Urine Color Yellow Urine Clarity Clear Urine pH 6.0 Urine Specific [place] 1.025 Urine Protein Negative mg/dL (NEG-TRACE) Urine Glucose (UA) Negative mg/dL (NEG) Urine Ketones (Stick) Negative mg/dL (NEG) Urine Blood Negative (NEG) Urine Nitrite Negative (NEG) Urine Bilirubin Negative (NEG) Urine Urobilinogen Dipstick 1.0 mg/dL (0.2 mg/dL) Urine Leukocyte Esterase Negative (NEG) Urine RBC 0 /HPF (0-2) Urine WBC 1-4 /HPF (0-4) Urine Squamous Epithelial Cells Mod /LPF Urine Bacteria 0 /HPF (0-FEW) Urine Mucus Mod /LPF Glucose (Fingerstick) 192 mg/dL (70-99) 225 mg/dL (70-99) White Blood Count 7.4 x10^3/uL (4.0-11.0) Red Blood Count 4.74 x10^6/uL (3.50-5.40) Hemoglobin 10.2 g/dL (12.0-15.5) Hematocrit 31.6 % (36.0-47.0) Mean Corpuscular Volume 67 fL (79-100) Mean Corpuscular Hemoglobin 22 pg (25-35) Mean Corpuscular Hemoglobin Concent 32 g/dL (31-37) Red Cell Distribution Width 18.5 % (11.5-14.5) Platelet Count 168 x10^3/uL (140-400) Neutrophils (%) (Auto) 42 % (31-73) Lymphocytes (%) (Auto) 49 % (24-48) Monocytes (%) (Auto) 8 % (0-9) Eosinophils (%) (Auto) 1 % (0-3) Basophils (%) (Auto) 1 % (0-3) Neutrophils # (Auto) 3.1 x10^3uL (1.8-7.7) Lymphocytes # (Auto) 3.6 x10^3/uL (1.0-4.8) Monocytes # (Auto) 0.6 x10^3/uL (0.0-1.1) Eosinophils # (Auto) 0.1 x10^3/uL (0.0-0.7) Basophils # (Auto) 0.1 x10^3/uL (0.0-0.2) Sodium Level 143 mmol/L (136-145) Potassium Level 3.3 mmol/L (3.5-5.1) Chloride Level 107 mmol/L (98-107) Carbon Dioxide Level 28 mmol/L (21-32) Anion Gap 8 (6-14) Blood Urea Nitrogen 13 mg/dL (7-20) Creatinine 0.5 mg/dL (0.6-1.0) Estimated GFR (Cockcroft-Gault) 149.8 BUN/Creatinine Ratio 26 (6-20) Glucose Level 131 mg/dL (70-99) Calcium Level 9.0 mg/dL (8.5-10.1) Total Bilirubin 0.3 mg/dL (0.2-1.0) Aspartate Amino Transf (AST/SGOT) 10 U/L (15-37) Alanine Aminotransferase (ALT/SGPT) 21 U/L (14-59) Alkaline Phosphatase 88 U/L (46-116) Total Protein 6.6 g/dL (6.4-8.2) Albumin 2.8 g/dL (3.4-5.0) Albumin/Globulin Ratio 0.7 (1.0-1.7) Medications Current Medications Lorazepam (Ativan) 5 mg 1X ONCE IV ; Start 05/13/18 at 11:30; Stop 05/13/18 at 12:47; Status DC Lorazepam (Ativan) 1 mg 1X ONCE IM Last administered on 05/13/18at 12:53; Start 05/13/18 at 13:00; Stop 05/13/18 at 13:01; Status DC Ondansetron HCl (Zofran) 4 mg PRN Q8HRS PRN IV NAUSEA/VOMITING; Start 05/13/18 at 15:45; Stop 05/14/18 at 15:44 Sodium Chloride 1,000 ml @ 150 mls/hr Q6H40M IV Last administered on at 05:43; Start 05/13/18 at 15:36; Stop 05/14/18 at 15:35 Meclizine HCl (Antivert) 25 mg Q4HRS PO Last administered on 05/14/18at 08:42; Start 05/13/18 at 16:00 Amlodipine Besylate (Norvasc) 5 mg DAILY PO Last administered on 05/14/18at 08: 43; Start 05/14/18 at 09:00 Atorvastatin Calcium (Lipitor) 40 mg HS PO Last administered on 05/13/18at 22:47 ; Start 05/13/18 at 23:00 Clonazepam (KlonoPIN) 0.5 mg PRN BID PRN PO ANXIETY / AGITATION Last administered on 05/13/18at 22:47; Start 05/13/18 at 22:15 Hydrochlorothiazide (Microzide) 12.5 mg DAILY PO Last administered on at 08:43; Start 05/14/18 at 09:00 Insulin Human Lispro (HumaLOG) 0-5 UNITS TIDWMEALS SQ ; Start 05/14/18 at 08:00 Dextrose (Dextrose 50%-Water Syringe) 12.5 gm PRN Q15MIN PRN IV SEE COMMENTS; Start 05/13/18 at 22:15 Losartan Potassium (Cozaar) 100 mg DAILY PO Last administered on 05/14/18at 08: 43; Start 05/14/18 at 09:00 Active Scripts Active Benadryl (Diphenhydramine Hcl) 25 Mg Capsule 1 Cap PO QHS Reported Amlodipine Besylate 5 Mg Tablet 5 Mg PO DAILY Klonopin (Clonazepam) 0.5 Mg Tablet 0.5 Mg PO PRN BID Atorvastatin Calcium 20 Mg Tablet 20 Mg PO HS Valsartan-Hctz 160-12.5 Mg Tab (Valsartan/Hydrochlorothiazide) 1 Each Tablet 1 Each PO DAILY Promethazine Hcl 25 Mg Supp.rect 25 Mg RC Q6H PRN Metformin Hcl 500 Mg Tablet 1 Tab PO BID Vitals/I & O Vital Sign - Last 24 Hours 05/13/18 05/13/18 05/13/18 05/13/18 11:15 12:23 12:53 13:32 Temp 97.7 97.7 Pulse 67 70 74 64 Resp 22 16 18 16 B/P (MAP) 167/77 (107) Pulse Ox 99 100 100 99 O2 Delivery Room Air 05/13/18 05/13/18 05/13/18 05/13/18 14:30 15:00 15:30 16:20 Pulse 80 80 66 Resp 18 20 16 Pulse Ox 98 98 100 O2 Delivery Room Air 05/13/18 05/13/18 05/13/18 05/13/18 16:48 19:46 20:00 23:00 Temp 97.7 98.2 98.2 97.7 98.2 98.2 Pulse 68 87 87 Resp 16 16 20 B/P (MAP) 134/67 (89) 140/75 (96) 127/59 (81) Pulse Ox 99 98 98 O2 Delivery Room Air Room Air Room Air Room Air 05/14/18 05/14/18 05/14/18 05/14/18 03:18 07:28 07:30 08:43 Temp 97.9 98.0 97.9 98.0 Pulse 75 83 83 Resp 16 20 B/P (MAP) 114/62 (79) 143/65 (91) 143/65 Pulse Ox 99 100 O2 Delivery Room Air Room Air Room Air 05/14/18 08:43 Pulse 83 B/P (MAP) 143/65 Intake and Output 05/13/18 05/13/18 05/14/18 15:00 23:00 07:00 Intake Total 240 ml Balance 240 ml BRENDON KIRKLAND MD May 14, 2018 11:02
[2018-05-14 11:24] VITALS: BP 112/76
[2018-05-14] MEDS ORDERED: POTASSIUM CHLORIDE 20 MEQ TABLET.ER. PO ONE (13:30)
[2018-05-14] MEDS: AMOXICILLIN/K CLAV 875/125MG TABLET. PO SCH ×2 (14:50→20:05)
[2018-05-14 15:09] VITALS: BP 125/61
[2018-05-14 19:12] VITALS: BP 149/77
[2018-05-14] MEDS: ATORVASTATIN CALCIUM 20 MG TABLET PO SCH (20:04)
[2018-05-14] MEDS: LACTOBACILLUS RHAMNOSUS GG 1 CAPSULE. PO SCH (20:05)
[2018-05-14 23:15] VITALS: BP 121/43
[2018-05-15] MEDS: MECLIZINE HCL 12.5 MG TABLET. PO SCH ×5 (00:52→17:07)
[2018-05-15 03:42] VITALS: BP 104/59
[2018-05-15 07:58] VITALS: BP 133/79
[2018-05-15] MEDS: INSULIN LISPRO 300 UNITS/3 ML INSULN.PEN. SQ SCH ×3 (08:00→17:00)
--- NOTE | 2018-05-15 08:49 | RAD ---
Clinical Indications: Dizziness. Exam : Carotid Duplex with Grayscale Ultrasound and Spectral and Color Doppler Analysis: PQRS Compliance Statement - Stenosis calculations for CT, MR and conventional angiography are based upon measurement of the distal ICA diameter in accordance with the NASCET methodology. Stenosis calculations for carotid ultrasound studies are derived from validated velocity criteria which are known to correlate with the NASCET methodology. Comparison study: None available. Findings: The common, internal and external carotid arteries were examined by grayscale, color and spectral Doppler ultrasound. Mild atherosclerotic plaque identified in the bilateral carotid bulbs and proximal internal carotid arteries. Flow in both vertebral arteries was antegrade and normal. The following are the velocities and ratios in the carotid arteries on both sides: RIGHT ICA PV: 70cm/sec RIGHT CCA PV: 92cm/sec RIGHT ICA ED: 22cm/sec RIGHT IC/CCPV: Less than 1 RIGHT VERTEBRAL: antegrade flow RIGHT % STENOSIS: Less than 50 percent LEFT ICA PV: 76cm/sec LEFT CCA PV: 102cm/sec LEFT ICA ED: 26cm/sec LEFT IC/CCPV: Less than 1 LEFT VERTEBRAL: antegrade flow LEFT % STENOSIS: Less than 50 percent <50% ICA Stenosis: PSV < 125cm/s (EDV < 40cm/s; SVR < 2.0) 50-69% ICA Stenosis: PSV < 125-229cm/s (EDV 40-99cm/s; SVR 2.0-3.9) >70% ICA Stenosis: PSV > 230cm/s (EDV >100cm/s; SVR >4.0) Impression: No evidence of hemodynamically significant stenosis. Electronically signed by: Michael Reveles MD (05/15/2018 8:45 AM) [facility]
[2018-05-15] MEDS: hydroCHLOROthiazide 12.5 MG CAPSULE PO SCH (08:50)
[2018-05-15] MEDS: AMOXICILLIN/K CLAV 875/125MG TABLET. PO SCH (08:51)
[2018-05-15] MEDS: LACTOBACILLUS RHAMNOSUS GG 1 CAPSULE. PO SCH (08:51)
[2018-05-15] MEDS: LOSARTAN POTASSIUM 50 MG TABLET. PO SCH (08:51)
[2018-05-15] MEDS: amLODIPine BESYLATE 5 MG TABLET PO SCH (08:51)
--- NOTE | 2018-05-15 09:57 | PDOC2 ---
CONSULT Date of Consult Date of Consult DATE: 05/15/18 TIME: 09:56 Reason for Consult Reason for Consult: Dizziness History of Present Illness Reason for Visit: This patient is 53-year-old woman who presented to emergency room with complaint of dizziness patient reports she previously have a history of dizziness she will have more symptoms when she is trying to get out of the bed quickly or trying to change in head position. Her symptoms were improving. She reports over the last few days she is having more symptoms. When she is trying to get out of the bed too quickly she will feel lightheaded, dizziness. Patient denies any difficulty speaking tingling numbness on the face or focal extremity weakness. Her symptoms are improving. Current Problem List Problem List Problems Medical Problems: (1) Dizziness Status: Acute Current Medications Current Medications Current Medications Lorazepam (Ativan) 5 mg 1X ONCE IV ; Start 05/13/18 at 11:30; Stop 05/13/18 at 12:47; Status DC Lorazepam (Ativan) 1 mg 1X ONCE IM Last administered on 05/13/18at 12:53; Start 05/13/18 at 13:00; Stop 05/13/18 at 13:01; Status DC Ondansetron HCl (Zofran) 4 mg PRN Q8HRS PRN IV NAUSEA/VOMITING; Start 05/13/18 at 15:45; Stop 05/14/18 at 15:44; Status DC Sodium Chloride 1,000 ml @ 150 mls/hr Q6H40M IV Last administered on at 12:10; Start 05/13/18 at 15:36; Stop 05/14/18 at 15:35; Status DC Meclizine HCl (Antivert) 25 mg Q4HRS PO Last administered on 05/15/18at 08:51; Start 05/13/18 at 16:00 Amlodipine Besylate (Norvasc) 5 mg DAILY PO Last administered on 05/15/18at 08: 51; Start 05/14/18 at 09:00 Atorvastatin Calcium (Lipitor) 40 mg HS PO Last administered on 05/14/18at 20:04 ; Start 05/13/18 at 23:00 Clonazepam (KlonoPIN) 0.5 mg PRN BID PRN PO ANXIETY / AGITATION Last administered on 05/13/18at 22:47; Start 05/13/18 at 22:15 Hydrochlorothiazide (Microzide) 12.5 mg DAILY PO Last administered on 08:50; Start 05/14/18 at 09:00 Insulin Human Lispro (HumaLOG) 0-5 UNITS TIDWMEALS SQ Last administered on 05/14at 12:07; Start 05/14/18 at 08:00 Dextrose (Dextrose 50%-Water Syringe) 12.5 gm PRN Q15MIN PRN IV SEE COMMENTS; Start 05/13/18 at 22:15 Losartan Potassium (Cozaar) 100 mg DAILY PO Last administered on 05/15/18 08: 51; Start 05/14/18 at 09:00 Potassium Chloride (Klor-Con) 40 meq 1X ONCE PO Last administered on 14:51; Start 05/14/18 at 13:30; Stop 05/14/18 at 13:31; Status DC Amoxicillin/ Clavulanate Potassium (Augmentin 875/ 125mg) 1 tab BID PO Last administered on 05/15/18 08:51; Start 05/14/18 at 13:30 Lactobacillus Rhamnosus (Culturelle) 1 cap BID PO Last administered on 08:51; Start 05/14/18 at 21:00 Active Scripts Active Benadryl (Diphenhydramine Hcl) 25 Mg Capsule 1 Cap PO QHS Reported Amlodipine Besylate 5 Mg Tablet 5 Mg PO DAILY Klonopin (Clonazepam) 0.5 Mg Tablet 0.5 Mg PO PRN BID Atorvastatin Calcium 20 Mg Tablet 20 Mg PO HS Valsartan-Hctz 160-12.5 Mg Tab (Valsartan/Hydrochlorothiazide) 1 Each Tablet 1 Each PO DAILY Promethazine Hcl 25 Mg Supp.rect 25 Mg RC Q6H PRN Metformin Hcl 500 Mg Tablet 1 Tab PO BID Allergies Allergies: Coded Allergies: codeine (Unverified Adverse Reaction, Intermediate, VOMITING, 01/22/15) Physical Exam Physical Exam REVIEW OF SYSTEMS: Otherwise, not [id number] review of systems. PHYSICAL EXAMINATION: General appearance is in acute distress. HEENT: Normocephalic and nontraumatic. Eyes, nose, ears, and throat are unremarkable. Neck is supple. No lymphadenopathy. No crepitus. Cardiovascular: S1, S2, regular rate and rhythm. Pulmonary: Clear to auscultation bilaterally. Abdomen: Bowel sounds are positive. Abdomen is soft, nontender, and nondistended. NEUROLOGICAL EXAMINATION: Alert Oriented to time, place and person. PERRL. EOMI. CN: no focal findings. Muscle tone: within normal. Muscle strength:able to move all exts equally. DTR: 1-2 Plantar reflex: Flexor response bilaterally Gait: not examined in bed. Sensory exam: no abnormal findings. No obvious cerebellar signs elicited. Vitals VITALS Vital Signs Date Time Temp Pulse Resp B/P (MAP) Pulse Ox O2 Delivery O2 Flow Rate FiO2 05/15/18 08:51 68 133/79 05/15/18 07:58 98.2 20 100 Room Air 98.2 Labs Labs Laboratory Tests Test 05/13/18 10:46 05/13/18 12:22 05/13/18 17:22 05/13/18 20:50 White Blood Count 5.8 x10^3/uL (4.0-11.0) Red Blood Count 4.95 x10^6/uL (3.50-5.40) Hemoglobin 10.7 g/dL (12.0-15.5) Hematocrit 32.6 % (36.0-47.0) Mean Corpuscular Volume 66 fL (79-100) Mean Corpuscular Hemoglobin 22 pg (25-35) Mean Corpuscular Hemoglobin Concent 33 g/dL (31-37) Red Cell Distribution Width 18.8 % (11.5-14.5) Platelet Count 214 x10^3/uL (140-400) Neutrophils (%) (Auto) 52 % (31-73) Lymphocytes (%) (Auto) 40 % (24-48) Monocytes (%) (Auto) 6 % (0-9) Eosinophils (%) (Auto) 1 % (0-3) Basophils (%) (Auto) 2 % (0-3) Neutrophils # (Auto) 3.0 x10^3uL (1.8-7.7) Lymphocytes # (Auto) 2.3 x10^3/uL (1.0-4.8) Monocytes # (Auto) 0.3 x10^3/uL (0.0-1.1) Eosinophils # (Auto) 0.0 x10^3/uL (0.0-0.7) Basophils # (Auto) 0.1 x10^3/uL (0.0-0.2) Platelet Estimate Adequate (ADEQUATE) Hypochromasia Mod Anisocytosis Slight Microcytosis Slight Target Cells Few Sodium Level 143 mmol/L (136-145) Potassium Level 3.5 mmol/L (3.5-5.1) Chloride Level 105 mmol/L (98-107) Carbon Dioxide Level 30 mmol/L (21-32) Anion Gap 8 (6-14) Blood Urea Nitrogen 12 mg/dL (7-20) Creatinine 0.5 mg/dL (0.6-1.0) Estimated GFR (Cockcroft-Gault) 149.8 BUN/Creatinine Ratio 24 (6-20) Glucose Level 162 mg/dL (70-99) Calcium Level 9.4 mg/dL (8.5-10.1) Total Bilirubin 0.4 mg/dL (0.2-1.0) Aspartate Amino Transf (AST/SGOT) 11 U/L (15-37) Alanine Aminotransferase (ALT/SGPT) 22 U/L (14-59) Alkaline Phosphatase 93 U/L (46-116) Troponin I Quantitative < 0.017 ng/mL (0.000-0.055) Total Protein 7.2 g/dL (6.4-8.2) Albumin 3.1 g/dL (3.4-5.0) Albumin/Globulin Ratio 0.8 (1.0-1.7) Thyroid Stimulating Hormone (TSH) 0.024 uIU/mL (0.358-3.74) Urine Collection Type Unknown Urine Color Yellow Urine Clarity Clear Urine pH 6.0 Urine Specific [place] 1.025 Urine Protein Negative mg/dL (NEG-TRACE) Urine Glucose (UA) Negative mg/dL (NEG) Urine Ketones (Stick) Negative mg/dL (NEG) Urine Blood Negative (NEG) Urine Nitrite Negative (NEG) Urine Bilirubin Negative (NEG) Urine Urobilinogen Dipstick 1.0 mg/dL (0.2 mg/dL) Urine Leukocyte Esterase Negative (NEG) Urine RBC 0 /HPF (0-2) Urine WBC 1-4 /HPF (0-4) Urine Squamous Epithelial Cells Mod /LPF Urine Bacteria 0 /HPF (0-FEW) Urine Mucus Mod /LPF Glucose (Fingerstick) 192 mg/dL (70-99) 225 mg/dL (70-99) Test 05/14/18 03:40 05/14/18 11:22 05/14/18 16:59 05/14/18 20:54 White Blood Count 7.4 x10^3/uL (4.0-11.0) Red Blood Count 4.74 x10^6/uL (3.50-5.40) Hemoglobin 10.2 g/dL (12.0-15.5) Hematocrit 31.6 % (36.0-47.0) Mean Corpuscular Volume 67 fL (79-100) Mean Corpuscular Hemoglobin 22 pg (25-35) Mean Corpuscular Hemoglobin Concent 32 g/dL (31-37) Red Cell Distribution Width 18.5 % (11.5-14.5) Platelet Count 168 x10^3/uL (140-400) Neutrophils (%) (Auto) 42 % (31-73) Lymphocytes (%) (Auto) 49 % (24-48) Monocytes (%) (Auto) 8 % (0-9) Eosinophils (%) (Auto) 1 % (0-3) Basophils (%) (Auto) 1 % (0-3) Neutrophils # (Auto) 3.1 x10^3uL (1.8-7.7) Lymphocytes # (Auto) 3.6 x10^3/uL (1.0-4.8) Monocytes # (Auto) 0.6 x10^3/uL (0.0-1.1) Eosinophils # (Auto) 0.1 x10^3/uL (0.0-0.7) Basophils # (Auto) 0.1 x10^3/uL (0.0-0.2) Sodium Level 143 mmol/L (136-145) Potassium Level 3.3 mmol/L (3.5-5.1) Chloride Level 107 mmol/L (98-107) Carbon Dioxide Level 28 mmol/L (21-32) Anion Gap 8 (6-14) Blood Urea Nitrogen 13 mg/dL (7-20) Creatinine 0.5 mg/dL (0.6-1.0) Estimated GFR (Cockcroft-Gault) 149.8 BUN/Creatinine Ratio 26 (6-20) Glucose Level 131 mg/dL (70-99) Calcium Level 9.0 mg/dL (8.5-10.1) Total Bilirubin 0.3 mg/dL (0.2-1.0) Aspartate Amino Transf (AST/SGOT) 10 U/L (15-37) Alanine Aminotransferase (ALT/SGPT) 21 U/L (14-59) Alkaline Phosphatase 88 U/L (46-116) Total Protein 6.6 g/dL (6.4-8.2) Albumin 2.8 g/dL (3.4-5.0) Albumin/Globulin Ratio 0.7 (1.0-1.7) Glucose (Fingerstick) 167 mg/dL (70-99) 140 mg/dL (70-99) 120 mg/dL (70-99) Test 05/15/18 07:56 Glucose (Fingerstick) 124 mg/dL (70-99) Laboratory Tests Test 05/14/18 11:22 05/14/18 16:59 05/14/18 20:54 05/15/18 07:56 Glucose (Fingerstick) 167 mg/dL (70-99) 140 mg/dL (70-99) 120 mg/dL (70-99) 124 mg/dL (70-99) Assessment/Plan Assessment/Plan This patient is 53-year-old woman who presented to emergency room with complaint of dizziness patient reports she previously have a history of dizziness she will have more symptoms when she is trying to get out of the bed quickly or trying to change in head position. Her symptoms were improving. She reports over the last few days she is having more symptoms. When she is trying to get out of the bed too quickly she will feel lightheaded, dizziness. Patient denies any difficulty speaking tingling numbness on the face or focal extremity weakness. Her symptoms are improving. 54-year-old woman with past medical history of positional dizziness with worsening of symptoms. Patient had CT scan done on the brain which was negative for any acute intracranial etiology. Patient reports she had MRI brain done recently which was negative. Patient is not interested in getting a repeat scan. K Doppler did not show any evidence of hemodynamically significant stenosis. We will also recommend the ENT follow-up as outpatient. Patient also has history of anxiety. Continue medication. Meclizine when necessary. Hypertension continue treat and monitor. Check for orthostatic hypotension. Diabetes continue treat and monitor. Plan discussed with patient in detail. She' ll follow-up in neurology clinic. ROSA NELSON MD May 15, 2018 09:57
[2018-05-15 11:18] VITALS: BP 150/48
--- NOTE | 2018-05-15 11:22 | PDOC ---
PROGRESS NOTES Chief Complaint Chief Complaint presented to ER with Vertigo, suspect vestibulitis with the inner ear disturbance. feels better today wants to go home, had back pain improved with toradal History of Present Illness History of Present Illness 1-vertigo vestibulitis 2-sinus retention cyst and mild sinusitis started Augmentin 3-HTN 4-DM 5-low back pain improved with NSAID improving , wants to go home Vitals Vitals Vital Signs Date Time Temp Pulse Resp B/P (MAP) Pulse Ox O2 Delivery O2 Flow Rate FiO2 05/15/18 11:18 97.9 78 18 150/48 (82) 96 Room Air 97.9 Physical Exam General: Alert, Oriented X3, Cooperative Heart: Regular rate, Normal S1, Normal S2 Lungs: Clear Abdomen: Normal bowel sounds, Soft Extremities: No clubbing, No cyanosis Skin: No significant lesion Labs LABS Laboratory Tests Test 05/14/18 11:22 05/14/18 16:59 05/14/18 20:54 05/15/18 07:56 Glucose (Fingerstick) 167 mg/dL (70-99) 140 mg/dL (70-99) 120 mg/dL (70-99) 124 mg/dL (70-99) Test 05/15/18 11:13 Glucose (Fingerstick) 145 mg/dL (70-99) Assessment and Plan Assessmemt and Plan Problems Medical Problems: (1) Dizziness Status: Acute Comment Review of Relevant I have reviewed the following items rudy (where applicable) has been applied. Labs Laboratory Tests Test 05/13/18 12:22 05/13/18 17:22 05/13/18 20:50 05/14/18 03:40 Urine Collection Type Unknown Urine Color Yellow Urine Clarity Clear Urine pH 6.0 Urine Specific [place] 1.025 Urine Protein Negative mg/dL (NEG-TRACE) Urine Glucose (UA) Negative mg/dL (NEG) Urine Ketones (Stick) Negative mg/dL (NEG) Urine Blood Negative (NEG) Urine Nitrite Negative (NEG) Urine Bilirubin Negative (NEG) Urine Urobilinogen Dipstick 1.0 mg/dL (0.2 mg/dL) Urine Leukocyte Esterase Negative (NEG) Urine RBC 0 /HPF (0-2) Urine WBC 1-4 /HPF (0-4) Urine Squamous Epithelial Cells Mod /LPF Urine Bacteria 0 /HPF (0-FEW) Urine Mucus Mod /LPF Glucose (Fingerstick) 192 mg/dL (70-99) 225 mg/dL (70-99) White Blood Count 7.4 x10^3/uL (4.0-11.0) Red Blood Count 4.74 x10^6/uL (3.50-5.40) Hemoglobin 10.2 g/dL (12.0-15.5) Hematocrit 31.6 % (36.0-47.0) Mean Corpuscular Volume 67 fL (79-100) Mean Corpuscular Hemoglobin 22 pg (25-35) Mean Corpuscular Hemoglobin Concent 32 g/dL (31-37) Red Cell Distribution Width 18.5 % (11.5-14.5) Platelet Count 168 x10^3/uL (140-400) Neutrophils (%) (Auto) 42 % (31-73) Lymphocytes (%) (Auto) 49 % (24-48) Monocytes (%) (Auto) 8 % (0-9) Eosinophils (%) (Auto) 1 % (0-3) Basophils (%) (Auto) 1 % (0-3) Neutrophils # (Auto) 3.1 x10^3uL (1.8-7.7) Lymphocytes # (Auto) 3.6 x10^3/uL (1.0-4.8) Monocytes # (Auto) 0.6 x10^3/uL (0.0-1.1) Eosinophils # (Auto) 0.1 x10^3/uL (0.0-0.7) Basophils # (Auto) 0.1 x10^3/uL (0.0-0.2) Sodium Level 143 mmol/L (136-145) Potassium Level 3.3 mmol/L (3.5-5.1) Chloride Level 107 mmol/L (98-107) Carbon Dioxide Level 28 mmol/L (21-32) Anion Gap 8 (6-14) Blood Urea Nitrogen 13 mg/dL (7-20) Creatinine 0.5 mg/dL (0.6-1.0) Estimated GFR (Cockcroft-Gault) 149.8 BUN/Creatinine Ratio 26 (6-20) Glucose Level 131 mg/dL (70-99) Calcium Level 9.0 mg/dL (8.5-10.1) Total Bilirubin 0.3 mg/dL (0.2-1.0) Aspartate Amino Transf (AST/SGOT) 10 U/L (15-37) Alanine Aminotransferase (ALT/SGPT) 21 U/L (14-59) Alkaline Phosphatase 88 U/L (46-116) Total Protein 6.6 g/dL (6.4-8.2) Albumin 2.8 g/dL (3.4-5.0) Albumin/Globulin Ratio 0.7 (1.0-1.7) Test 05/14/18 11:22 05/14/18 16:59 05/14/18 20:54 05/15/18 07:56 Glucose (Fingerstick) 167 mg/dL (70-99) 140 mg/dL (70-99) 120 mg/dL (70-99) 124 mg/dL (70-99) Test 05/15/18 11:13 Glucose (Fingerstick) 145 mg/dL (70-99) Laboratory Tests Test 05/14/18 16:59 05/14/18 20:54 05/15/18 07:56 05/15/18 11:13 Glucose (Fingerstick) 140 mg/dL (70-99) 120 mg/dL (70-99) 124 mg/dL (70-99) 145 mg/dL (70-99) Medications Current Medications Lorazepam (Ativan) 5 mg 1X ONCE IV ; Start 05/13/18 at 11:30; Stop 05/13/18 at 12:47; Status DC Lorazepam (Ativan) 1 mg 1X ONCE IM Last administered on 05/13/18at 12:53; Start 05/13/18 at 13:00; Stop 05/13/18 at 13:01; Status DC Ondansetron HCl (Zofran) 4 mg PRN Q8HRS PRN IV NAUSEA/VOMITING; Start 05/13/18 at 15:45; Stop 05/14/18 at 15:44; Status DC Sodium Chloride 1,000 ml @ 150 mls/hr Q6H40M IV Last administered on at 12:10; Start 05/13/18 at 15:36; Stop 05/14/18 at 15:35; Status DC Meclizine HCl (Antivert) 25 mg Q4HRS PO Last administered on 05/15/18 08:51; Start 05/13/18 at 16:00 Amlodipine Besylate (Norvasc) 5 mg DAILY PO Last administered on 05/15/18 08: 51; Start 05/14/18 at 09:00 Atorvastatin Calcium (Lipitor) 40 mg HS PO Last administered on 05/14/18 20:04 ; Start 05/13/18 at 23:00 Clonazepam (KlonoPIN) 0.5 mg PRN BID PRN PO ANXIETY / AGITATION Last administered on 05/13/18 22:47; Start 05/13/18 at 22:15 Hydrochlorothiazide (Microzide) 12.5 mg DAILY PO Last administered on 08:50; Start 05/14/18 at 09:00 Insulin Human Lispro (HumaLOG) 0-5 UNITS TIDWMEALS SQ Last administered on 05/14 12:07; Start 05/14/18 at 08:00 Dextrose (Dextrose 50%-Water Syringe) 12.5 gm PRN Q15MIN PRN IV SEE COMMENTS; Start 05/13/18 at 22:15 Losartan Potassium (Cozaar) 100 mg DAILY PO Last administered on 05/15/18 08: 51; Start 05/14/18 at 09:00 Potassium Chloride (Klor-Con) 40 meq 1X ONCE PO Last administered on 14:51; Start 05/14/18 at 13:30; Stop 05/14/18 at 13:31; Status DC Amoxicillin/ Clavulanate Potassium (Augmentin 875/ 125mg) 1 tab BID PO Last administered on 05/15/18 08:51; Start 05/14/18 at 13:30 Lactobacillus Rhamnosus (Culturelle) 1 cap BID PO Last administered on 08:51; Start 05/14/18 at 21:00 Active Scripts Active Benadryl (Diphenhydramine Hcl) 25 Mg Capsule 1 Cap PO QHS Reported Amlodipine Besylate 5 Mg Tablet 5 Mg PO DAILY Klonopin (Clonazepam) 0.5 Mg Tablet 0.5 Mg PO PRN BID Atorvastatin Calcium 20 Mg Tablet 20 Mg PO HS Valsartan-Hctz 160-12.5 Mg Tab (Valsartan/Hydrochlorothiazide) 1 Each Tablet 1 Each PO DAILY Promethazine Hcl 25 Mg Supp.rect 25 Mg RC Q6H PRN Metformin Hcl 500 Mg Tablet 1 Tab PO BID Vitals/I & O Vital Sign - Last 24 Hours 05/14/18 05/14/18 05/14/18 05/14/18 11:24 15:09 19:12 20:00 Temp 98.1 98.3 97.9 98.1 98.3 97.9 Pulse 65 82 76 Resp 20 20 18 B/P (MAP) 112/76 (88) 125/61 (82) 149/77 (101) Pulse Ox 99 97 99 O2 Delivery Room Air Room Air Room Air Room Air 05/14/18 05/15/18 05/15/18 05/15/18 23:15 03:42 07:58 08:00 Temp 97.9 98.0 98.2 97.9 98.0 98.2 Pulse 80 73 68 Resp 18 18 20 B/P (MAP) 121/43 (69) 104/59 (74) 133/79 (97) Pulse Ox 99 99 100 O2 Delivery Room Air Room Air Room Air Room Air 05/15/18 05/15/18 05/15/18 08:51 08:51 11:18 Temp 97.9 97.9 Pulse 68 68 78 Resp 18 B/P (MAP) 133/79 133/79 150/48 (82) Pulse Ox 96 O2 Delivery Room Air Intake and Output 05/14/18 05/14/18 05/15/18 15:00 23:00 07:00 Intake Total 500 ml Balance 500 ml BRENDON KIRKLAND MD May 15, 2018 11:22
[2018-05-15] MEDS ORDERED: KETOROLAC 30 MG/ML VIAL. IM ONE (12:00)
[2018-05-15] MEDS ORDERED: KETOROLAC 30 MG/ML VIAL. IV ONE (12:00)
[2018-05-15 15:10] VITALS: BP 113/59
[2018-05-15] MEDS ORDERED: LACT1CAP19 PO (15:38)
[2018-05-15] MEDS ORDERED: MECL12.52 PO (15:38)
[2018-05-15] MEDS ORDERED: AMOX1TAB11 PO (15:38)
[2018-05-15] MEDS ORDERED: MELO15TA6 PO (15:38)
--- NOTE | 2018-05-16 10:48 | PDOC3 ---
*Discharge Summary* Date of Admission: May 13, 2018 Date of Discharge: May 15, 2018 Admitting Diagnosis Problems Medical Problems: (1) Dizziness Status: Acute Final Diagnosis 1-vertigo vestibulitis 2-sinus retention cyst and mild sinusitis started Augmentin 3-HTN 4-DM 5-low back pain improved with NSAID 6- mild anemia advised work up as out pt 7-anxiety Problems Medical Problems: (1) Dizziness Status: Acute CONSULTS neurology Procedures ct scan head neg, carotid doppler no significant stenosis, cxr neg Brief Hospital Course Ms. Galdamez is a 63 old female who presented with dizziness with nausea upon moving fast, work up for CVA with CT head and carotid and neurology consult, CT showed sinus retention cyst started on ABx and to see ENT out pt due to labrynthitis and sinus retention cyst, she has mild anemia advised to F/u with PCP and have work yp for that , BS ok with metformin, Bp ok , she reported back pain before discharge improved with toradal requested NSAID script given meloxicam with meals and asked to F/U with PCP in 1-2 weeks Disposition/Orders: D/C to Home CONDITION AT DISCHARGE: Improved Diet: Cardiac, Consistent Carbohydrate Home Meds Active Scripts Meloxicam (MOBIC) 15 Mg Tablet, 1 TAB PO DAILY, #30 TAB 1 Refill Prov:BRENDON KIRKLAND MD 05/15/18 Lactobacillus Rhamnosus Gg (CULTURELLE) 1 Each Cap.sprink, 1 CAP PO BID for 30 Days, #60 CAP Prov:BRENDON KIRKLAND MD 05/15/18 Meclizine Hcl (MECLIZINE HCL) 12.5 Mg Tablet, 25 MG PO Q4HRS for 7 Days, #84 TAB 0 Refills Prov:BRENDON KIRKLAND MD 05/15/18 Amoxicillin/Potassium Clav (AMOX TR-K CLV 875-125 MG TAB) 1 Each Tablet, 1 TAB PO BID for 10 Days, #20 TAB 0 Refills Prov:BRENDON KIRKLAND MD 05/15/18 Diphenhydramine Hcl (BENADRYL) 25 Mg Capsule, 1 CAP PO QHS, #30 CAP 1 Refill Prov:ELLIOTT RODRIGUEZ MD 03/02/17 Reported Medications Amlodipine Besylate (AMLODIPINE BESYLATE) 5 Mg Tablet, 5 MG PO DAILY, TAB 05/13/18 Clonazepam (KLONOPIN) 0.5 Mg Tablet, 0.5 MG PO PRN BID, TAB 05/13/18 Atorvastatin Calcium (ATORVASTATIN CALCIUM) 20 Mg Tablet, 20 MG PO HS for FOR CHOLESTEROL, #30 TAB 0 Refills 01/30/16 Valsartan/Hydrochlorothiazide (VALSARTAN-HCTZ 160-12.5 MG TAB) 1 Each Tablet, 1 EACH PO DAILY, TAB 01/30/16 Promethazine Hcl (PROMETHAZINE HCL) 25 Mg Supp.rect, 25 MG RC Q6H PRN for NAUSEA /VOMITING, SUPP.RECT 01/30/16 Metformin Hcl (METFORMIN HCL) 500 Mg Tablet, 1 TAB PO BID, #180 TAB 1 Refill 01/30/16 Scheduled Amlodipine Besylate (Amlodipine Besylate), 5 MG PO DAILY, (Reported) Amoxicillin/Potassium Clav (Amox Tr-K Clv 875-125 Mg Tab), 1 TAB PO BID Atorvastatin Calcium (Atorvastatin Calcium), 20 MG PO HS, (Reported) Clonazepam (Klonopin), 0.5 MG PO PRN BID, (Reported) Diphenhydramine Hcl (Benadryl), 1 CAP PO QHS Lactobacillus Rhamnosus Gg (Culturelle), 1 CAP PO BID Meclizine Hcl (Meclizine Hcl), 25 MG PO Q4HRS Meloxicam (Mobic), 1 TAB PO DAILY Metformin Hcl (Metformin Hcl), 1 TAB PO BID, (Reported) Valsartan/Hydrochlorothiazide (Valsartan-Hctz 160-12.5 Mg Tab), 1 EACH PO DAILY, (Reported) Scheduled PRN Promethazine Hcl (Promethazine Hcl), 25 MG RC Q6H PRN for NAUSEA/VOMITING, ( Reported) Scripts Meloxicam (MOBIC) 15 Mg Tablet 1 TAB PO DAILY, #30 TAB 1 Refill Prov: BRENDON KIRKLAND MD 05/15/18 Lactobacillus Rhamnosus Gg (CULTURELLE) 1 Each Cap.sprink 1 CAP PO BID for 30 Days, #60 CAP Prov: BRENDON KIRKLAND MD 05/15/18 Meclizine Hcl (MECLIZINE HCL) 12.5 Mg Tablet 25 MG PO Q4HRS for 7 Days, #84 TAB 0 Refills Prov: BRENDON KIRKLAND MD 05/15/18 Amoxicillin/Potassium Clav (AMOX TR-K CLV 875-125 MG TAB) 1 Each Tablet 1 TAB PO BID for 10 Days, #20 TAB 0 Refills Prov: BRENDON KIRKLAND MD 05/15/18 FOLLOW UP APPOINTMENT: F/U pcp 1-2 weeks for RONAL, advised to discuss anemia work up with PCP, see ENT for sinus retention cyst and f/u neurology clinic in 4 weeks Time Spent Total time spent with patient 45 minutes for coordination of care, counseling, and education. discussed above f/u recommendation in detail with patient BRENDON KIRKLAND MD May 16, 2018 10:48
== END 2018-05-15 18:04 | disposition home or self-care (01) | DRG 149 ==
LOC: ER 10:58 → 6 SOUTH 14:30
PROVIDERS: ADMIT Internal Medicine; ATTEND Internal Medicine
DX: H83.09 Labyrinthitis, unspecified ear (principal); D64.9 Anemia, unspecified; E11.9 Type 2 diabetes mellitus without complications; F41.9 Anxiety disorder, unspecified; I10 Essential (primary) hypertension; K59.00 Constipation, unspecified; M54.5 Low back pain; W18.39XA Other fall on same level, initial encounter; Y93.89 Activity, other specified; Y92.89 Other specified places as the place of occurrence of the external cause; Y99.8 Other external cause status; Z82.49 Family history of ischemic heart disease and other diseases of the circulatory system; Z88.8 Allergy status to other drugs, medicaments and biological substances; Z79.899 Other long term (current) drug therapy
CPT/HCPCS: 36415; 70450; 71045; 80053; 81001; 82962; 84443; 84484; 85025; 93005; 93880; 96360; 96372; J1815; J1885; J2060; J7030; J8597; 99285-25

== ENCOUNTER 2018-10-08 15:57 | Emergency (ER) | payer OTHER ==
[~2018-10-08] VITALS: Ht 160 cm; Wt 108.9 kg
[~2018-10-08 15:57] MED LIST changes: +AMLO5TAB10 PO; +AMOX1TAB11 PO; +CLON0.5T PO; +LACT1CAP19 PO; +MECL12.52 PO; +MECL25TA3 PO; +MELO15TA6 PO; +SENN-162 PO; -SENN1TAB9 PO
[2018-10-08] MEDS ORDERED: ACETAMINOPHEN 500 MG TABLET PO ONE (17:15)
--- NOTE | 2018-10-08 19:25 | RAD ---
Indication:Fall r ankle and hip pain TECHNIQUE: 3 views of the right ankle COMPARISON:None FINDINGS/ impression: Nondisplaced oblique fracture is seen through the distal fibula with extension to the ankle mortise. Ankle mortise is not widened. Mild soft tissue swelling overlying lateral malleolus. Electronically signed by: Cristopher Belcher DO (10/08/2018 7:22 PM) [facility]
--- NOTE | 2018-10-08 19:31 | RAD ---
PQRS Compliance statement: One or more of the following individualized dose reduction techniques were utilized for this examination: 1. Automated exposure control. 2. Adjustment of the mA and/or kV according to patient size. 3. Use of iterative reconstruction technique. Indication:RIGHT SIDED PELVIS & HIP PAIN, FELL AROUND 3:30pm TODAY TECHNIQUE: CT pelvis without IV contrast with multiplanar reformats. COMPARISON: Plain films from the same day FINDINGS: No acute fracture or dislocation. Mild bilateral hip joint osteoarthritis. Lumbosacral spine is within normal limits. Intact pubic symphysis. No free pelvic fluid or ascites. Normal appendix. No hip joint effusion. Multiple calcified fibroids. Urinary bladder is decompressed limiting optimal evaluation. IMPRESSION: No acute fractures. Electronically signed by: Cristopher Belcher DO (10/08/2018 7:28 PM) [facility]
--- NOTE | 2018-10-08 19:36 | PHYS DOC ---
Past Medical History Past Medical History: Diabetes-Type II, Hypertension Additional Past Medical Histor: cataracts Past Surgical History: No Surgical History Additional Past Surgical Histo: RIGHT KNEE SX, R&L BREAST BX; left knee Alcohol Use: None Drug Use: None Adult General Chief Complaint Chief Complaint: MECHANICAL FALL HPI HPI Patient is a 63 year old AA female who presents to the ER with complaints of right hip and right ankle pain after slipping and falling in the driveway at 1430 today. Pt denies any head injury, back pain, LOC, nausea, or vomiting. She reports lateral R ankle pain/swelling and R hip pain at this time. Pt had complained of R knee pain but denies any knee pain at this time. Review of Systems Review of Systems Constitutional: Denies fever or chills [] Respiratory: Denies cough or shortness of breath [] Cardiovascular: No additional information not addressed in HPI [] GI: Denies abdominal pain, nausea,or vomiting, Musculoskeletal: Denies back pain; see HPI Integument: Denies rash or skin lesions Neurologic: Denies headache, focal weakness or sensory changes [] Current Medications Current Medications Current Medications Medications (Trade) Dose Ordered Sig/Jossie Start Time Stop Time Status Last Admin Dose Admin Acetaminophen (Tylenol) 1,000 mg 1X ONCE 10/08/18 17:15 10/08/18 17:16 DC 10/08/18 17:18 1,000 MG Fentanyl Citrate (Fentanyl 2ml Vial) 50 mcg 1X ONCE 10/08/18 20:15 10/08/18 20:16 DC 10/08/18 20:09 50 MCG Ibuprofen (Motrin) 600 mg 1X ONCE 10/08/18 20:00 10/08/18 20:01 DC 10/08/18 20:09 600 MG Allergies Allergies Allergies Coded Allergies Type Severity Reaction Last Updated Verified codeine Adverse Reaction Intermediate VOMITING 01/22/15 No Physical Exam Physical Exam Constitutional: Well developed, well nourished, no acute distress, non-toxic appearance. [] HENT: Normocephalic, atraumatic, bilateral external ears normal, nose normal. [] Eyes: PERRLA, conjunctiva normal, no discharge. [] Neck: Normal range of motion, no stridor. [] Cardiovascular:Heart rate regular rhythm Lungs & Thorax: respirations even and unlabored, no retractions Skin: Warm, dry, no erythema, no rash. [] Extremities: No cyanosis, no clubbing; right hip TTP, increased pain with ROM, R knee non-tender to palpation with full ROM; 1+ swelling and TTP of lateral right ankle with limited ROM of R ankle due to pain; 2+ pedal and posterior tibial pulses of RLE Neurologic: Alert and oriented X 3, normal motor function, normal sensory function, no focal deficits noted. [] Psychologic: Affect normal, judgement normal, mood normal. [] Current Patient Data Vital Signs Vital Signs Date Time Temp Pulse Resp B/P (MAP) Pulse Ox O2 Delivery O2 Flow Rate FiO2 10/08/18 20:40 18 10/08/18 20:37 71 99 10/08/18 16:23 98.2 154/72 (99) Room Air 98.2 EKG EKG [] Radiology/Procedures Radiology/Procedures PROCEDURE: ANKLE RIGHT 3V Indication:Fall r ankle and hip pain TECHNIQUE: 3 views of the right ankle COMPARISON:None FINDINGS/ impression: Nondisplaced oblique fracture is seen through the distal fibula with extension to the ankle mortise. Ankle mortise is not widened. Mild soft tissue swelling overlying lateral malleolus.[] PROCEDURE: CT PELVIS WO CONTRAST PQRS Compliance statement: One or more of the following individualized dose reduction techniques were utilized for this examination: 1. Automated exposure control. 2. Adjustment of the mA and/or kV according to patient size. 3. Use of iterative reconstruction technique. Indication:RIGHT SIDED PELVIS & HIP PAIN, FELL AROUND 3:30pm TODAY TECHNIQUE: CT pelvis without IV contrast with multiplanar reformats. COMPARISON: Plain films from the same day FINDINGS: No acute fracture or dislocation. Mild bilateral hip joint osteoarthritis. Lumbosacral spine is within normal limits. Intact pubic symphysis. No free pelvic fluid or ascites. Normal appendix. No hip joint effusion. Multiple calcified fibroids. Urinary bladder is decompressed limiting optimal evaluation. IMPRESSION: No acute fractures. PROCEDURE: HIP RIGHT 2V WITH PELVIS Indication: Fall. Right hip pain TECHNIQUE: AP pelvis and 2 views of the right hip COMPARISON: None Findings/ impression: No acute fracture or dislocation. Calcified fibroids. Course & Med Decision Making Course & Med Decision Making Pertinent Labs and Imaging studies reviewed. (See chart for details) DX: fall on ice, closed right fibula fx, R hip pain X-ray and CT of R hip/pelvis were negative. Xray of R ankle revealed nondisplaced fx of fibula. Pt was placed in a stirrup splint. She reports that she has a walker at home that she will use for ambulation. Pt was given 1000 mg of tylenol, 600 mg of motrin, and 50 mcg of fentanyl IM in the ER for pain control. She refused a prescription for narcotic pain medication. A prescription was written for ibuprofen 600 mg QID prn. Pt was given Dr. Sherwood's information for follow up. She verbalized and understanding of d/c instructions , medications, follow-up, and return to ED instructions and was in agreement with POC. [] Dragon Disclaimer Dragon Disclaimer This electronic medical record was generated, in whole or in part, using a voice recognition dictation system. Departure Departure Impression: Primary Impression: Right hip pain Additional Impressions: Fall due to ice or snow Closed right fibular fracture Disposition: HOME, SELF-CARE Condition: STABLE Referrals: AMANDA SHERWOOD MD Patient Instructions: Fibular Fracture, Ankle, Adult, Undisplaced, Treated with Immobilization, Hip Pain Additional Instructions: Fill prescription(s) and use as directed. Recommend application of ice, elevation, and rest of affected extremity. Wear the splint that was placed until follow up appointment with Dr. Sherwood, call on Wednesday morning for an appointment. Return to the ER if your symptoms worsen. Scripts Ibuprofen (IBUPROFEN) 600 Mg Tablet 600 MG PO PRN Q6HRS PRN for PAIN for 10 Days, #40 TAB 0 Refills Prov: SERINA ZAVALA TOP STITCHER 10/08/18 Problem Qualifiers Additional Impressions: Fall due to ice or snow Encounter type: initial encounter Qualified Codes: W00.9XXA - Unspecified fall due to ice and snow, initial encounter Closed right fibular fracture Encounter type: initial encounter Fibula location: shaft Fracture morphology: oblique Fracture alignment: nondisplaced Qualified Codes: S82.434A - Nondisplaced oblique fracture of shaft of right fibula, initial encounter for closed fracture SERINA ZAVALA TOP STITCHER Oct 08, 2018 19:36
--- NOTE | 2018-10-08 19:46 | RAD ---
Indication: Fall. Right hip pain TECHNIQUE: AP pelvis and 2 views of the right hip COMPARISON: None Findings/ impression: No acute fracture or dislocation. Calcified fibroids. Electronically signed by: Cristopher Belcher DO (10/08/2018 7:43 PM) [facility]
[2018-10-08] MEDS ORDERED: IBUPROFEN 200 MG TABLET. PO ONE (20:00)
[2018-10-08] MEDS ORDERED: IBUP-1007 PO (20:02)
[2018-10-08] MEDS ORDERED: fentaNYL PF VIAL 100 MCG/2 ML VIAL IM ONE (20:15)
[2018-10-08 20:37] VITALS: BP 159/84
== END 2018-10-08 20:51 | disposition home or self-care (01) ==
LOC: ER 15:57
DX: S82.434A Nondisplaced oblique fracture of shaft of right fibula, initial encounter for closed fracture (principal); M25.571 Pain in right ankle and joints of right foot; M16.0 Bilateral primary osteoarthritis of hip; I10 Essential (primary) hypertension; E11.9 Type 2 diabetes mellitus without complications; Z88.5 Allergy status to narcotic agent; W01.0XXA Fall on same level from slipping, tripping and stumbling without subsequent striking against object, initial encounter; Y93.89 Activity, other specified; Y92.89 Other specified places as the place of occurrence of the external cause; Y99.8 Other external cause status
CPT/HCPCS: 29515; 72192; 73502; 73610; 96372; 99284; J3010

== ENCOUNTER → 2019-03-07 | Outpatient (CLI) | payer OTHER ==
[~2019-03-07] MED LIST changes: +IBUP-1007 PO
--- NOTE | 2019-03-07 17:01 | KCIC ---
Bilateral diagnostic digital mammograms: Reason for examination: Right breast burning/pain behind nipple 3 weeks ago which has resolved. Comparison is made to previous studies dated 11/23/2017 and 09/28/2016. Interpretation was made with the benefit of CAD. The skin and nipples show no abnormalities. No abnormal axillary lymph nodes are seen. The breast parenchyma shows scattered fibroglandular density. (Breast density: Category B.) There are small nodules probably representing intramammary lymph nodes seen bilaterally with one located medially at the 2:00 C position. There are no other dominant masses, suspicious calcifications or architectural distortions. Some benign calcifications are present. Impression: Small nodules seen which probably represent intramammary lymph nodes with one located at the 2:30 position of the right breast. Ultrasound to follow. BI-RADS category 0: Incomplete. Needs additional imaging evaluation Right breast ultrasound: Ultrasound examination of the right breast was performed. In the 2:30 position 12 cm from the nipple, there is a small circumscribed nodule measuring 4.3 x 1.9 x 3.9 mm in greatest dimensions with some echogenicity centrally. This probably represents an intramammary lymph node. No other focal suspicious-appearing nodules are seen. IMPRESSION: Probable small intramammary lymph node at the 2:30 position which would correspond with these small nodule seen mammographically. Recommend reevaluation in 6 months with mammograms and ultrasound. BI-RADS Category 3: Probably Benign. "Our facility is accredited by the [employer] Mammography Program." This patient's information has been entered into a reminder system for the patient to be notified with the results of her examination and a target date for the next mammogram. Electronically signed by: Pat Doan MD (03/07/2019 4:57 PM) [facility]
== END | disposition home or self-care (01) ==
LOC: KCIC MAMMO 13:11
PROVIDERS: ATTEND Nurse Practitioner Family
DX: R92.1 Mammographic calcification found on diagnostic imaging of breast (principal)
CPT/HCPCS: 76641; 77066

== ENCOUNTER → 2019-09-05 | Outpatient (CLI) | payer OTHER ==
[~2019-09-05] MED LIST changes: +MECL-75 PO; -MECL12.52 PO; +MECL12.573 PO; -MECL25TA3 PO; -VALS1TAB27 PO; +VALS1TAB28 PO
--- NOTE | 2019-09-05 15:42 | KCIC ---
Right breast diagnostic digital mammograms: Reason for examination: Follow-up nodular density. Comparison is made to previous study dated 03/07/2019. Interpretation was made with the benefit of CAD. The skin and nipple show no abnormalities. No abnormal axillary lymph nodes are seen. The breast parenchyma shows scattered fibroglandular density. (Breast density: Category B.) There are calcifying degenerating fibroadenoma. There continues to be a small nodular density posteriorly. This will be further evaluated with ultrasound. There are no new dominant masses, suspicious calcifications or architectural distortions. Some benign calcifications are present. Impression: Small nodules seen posteriorly. Ultrasound to follow. BI-RADS category 0: Incomplete. Needs additional imaging evaluation. Right breast ultrasound: Comparison is made to previous study dated 03/07/2019. Ultrasound examination of the right breast and axilla was performed. At the 2:30 position 12 cm from the nipple, there continues to be a small 3.5 mm hypoechoic lesion which is in parallel orientation. The appearance suggests a small intramammary lymph node. This shows a slight decrease in size. There are no other cystic or solid nodules seen. No abnormal appearing lymph nodes are seen in the axilla. IMPRESSION: Continued presence of a small nodule consistent with a probable intramammary lymph node. No suspicious abnormality seen. Recommend 6 month follow-up with ultrasound which can be performed at the time of bilateral mammograms. BI-RADS Category 3: Probably Benign. "Our facility is accredited by the [employer] Mammography Program." This patient's information has been entered into a reminder system for the patient to be notified with the results of her examination and a target date for the next mammogram. Electronically signed by: Pat Doan MD (09/05/2019 3:39 PM) [place] [id number]
== END | disposition home or self-care (01) ==
LOC: KCIC MAMMO 12:42
PROVIDERS: ATTEND Nurse Practitioner Family
DX: D24.1 Benign neoplasm of right breast (principal); N63.10 Unspecified lump in the right breast, unspecified quadrant
CPT/HCPCS: 76641; 77065

== ENCOUNTER 2020-01-26 11:01 | Inpatient (IN) | payer OTHER ==
[~2020-01-26] VITALS: Ht 160 cm; Wt 106.8 kg
[~2020-01-26 11:01] MED LIST changes: +AZIT500T4 PO
[2020-01-26] MEDS ORDERED: ONDANSETRON PF 4 MG/2 ML VIAL. IVP ONE (11:30)
[2020-01-26] MEDS ORDERED: IV NORMAL SALINE 1000ML BAG 1,000 ML IV ONE (11:30)
[2020-01-26] MEDS ORDERED: METOCLOPRAMIDE HCL 10 MG/2 ML VIAL. IVP ONE (11:45)
[2020-01-26 12:09] LABS: BASO % 0 % (0-3); EOS # 0.1 x10^3/uL (0.0-0.7); EOS % 1 % (0-3); HEMATOCRIT 31.2 % (36.0-47.0); HEMOGLOBIN 9.7 g/dL (12.0-15.5); LYMPH # 3.5 x10^3/uL (1.0-4.8); LYMPH % 37 % (24-48); MEAN CORPUSCULAR HEMOGLOBIN 21 pg (25-35); MEAN CORPUSCULAR HGB CONC 31 g/dL (31-37); MEAN CORPUSCULAR VOLUME 68 fL (79-100); MONO # 0.4 x10^3/uL (0.0-1.1); MONO % 4 % (0-9); NEUT # 5.7 x10^3/uL (1.8-7.7); NEUT % 58 % (31-73); PLATELET COUNT 210 x10^3/uL (140-400); RED BLOOD COUNT 4.58 x10^6/uL (3.50-5.40); RED CELL DISTRIBUTION WIDTH 20.2 % (11.5-14.5); WHITE BLOOD COUNT 9.7 x10^3/uL (4.0-11.0)
[2020-01-26 12:20] LABS: BILIRUBIN,URINE NEGATIVE (NEG); CLARITY,URINE CLEAR; COLOR,URINE YELLOW; NITRITE,URINE NEGATIVE (NEG); PH,URINE 5.5 (<5.0-8.0); PROTEIN,URINE 100 mg/dL (NEG-TRACE)
[2020-01-26 12:20] LABS: PROTHROMBIN TIME PATIENT 13.8 SEC (11.7-14.0)
[2020-01-26 12:23] LABS: ALBUMIN 3.3 g/dL (3.4-5.0); CALCIUM 8.4 mg/dL (8.5-10.1); CREATININE 0.9 mg/dL (0.6-1.0); GFR 75.8; MAGNESIUM 1.3 mg/dL (1.8-2.4); TOTAL BILIRUBIN 0.5 mg/dL (0.2-1.0); TOTAL PROTEIN 6.6 g/dL (6.4-8.2)
--- NOTE | 2020-01-26 12:28 | EKG ---
[facility] [address] [place] [address] Test Date: 2020-01-26 Test Time: 11:41:21 Pat Name: FAUSTO GAY Department: Room: Gender: F Perianesthesia Nurse: : 1955 Requested By: GROVER MEDIAN Order Number: [id number] Reading MD: Jayden Ortiz Measurements Intervals [place] Rate: 70 P: 29 NC: 168 QRS: 0 QRSD: 94 T: 115 QT: 466 QTc: 507 Interpretive Statements SINUS RHYTHM LEFTWARD AXIS NONSPECIFIC ST-T WAVE CHANGES. Electronically Signed On 01-26-2020 16:49:55 CDT by Jayden Ortiz
[2020-01-26 12:29] LABS: AMORPHOUS SEDIMENT,UR PRESENT /HPF; BACTERIA,URINE 0 /HPF (0-FEW); HYALINE CASTS, URINE MODERATE /HPF; SQUAMOUS EPITHELIAL CELL,UR FEW /LPF
[2020-01-26 12:35] LABS: POTASSIUM 2.9 mmol/L (3.5-5.1)
[2020-01-26 12:47] LABS: PLT ESTIMATE ADEQUATE (ADEQUATE); POLYCHROMASIA SLIGHT
[2020-01-26 12:48] LABS: ANISOCYTOSIS MOD; HYPOCHROMIA MOD; MICROCYTOSIS MARKED; OVALOCYTES FEW; TARGET CELLS OCC
[2020-01-26] MEDS: POTASSIUM CHLORIDE 10MEQ 100 ML IV SCH ×4 (12:54→15:45)
[2020-01-26] MEDS ORDERED: MAGNESIUM SULFATE 2GM 50 ML IV ONE (13:00)
--- NOTE | 2020-01-26 14:21 | RAD ---
PQRS Compliance Statement: One or more of the following individualized dose reduction techniques were utilized for this examination: 1. Automated exposure control 2. Adjustment of the mA and/or kV according to patient size 3. Use of iterative reconstruction technique CT HEAD WITHOUT CONTRAST History: Reason: dizziness / Comparison: CT head without contrast, May 13, 2018. Technique: Axial images are obtained of the head from the skull base through the vertex without IV contrast. Findings: No mass-effect, midline shift, extra-axial fluid collection, hemorrhage, or obvious acute infarction is identified. Basilar cisterns are patent. The ventricles and sulci are prominent, consistent with age-related cerebral atrophy. There is minimal periventricular white matter hypoattenuation. This is a nonspecific finding but is commonly due to chronic small vessel ischemic disease. Bone windows demonstrate no acute calvarial abnormality. There is large left maxillary sinus mucous retention cyst or polyp. Small right sphenoid sinus mucous retention cyst or polyp. No air-fluid level is seen. Mastoid air cells are well aerated. IMPRESSION: No acute intracranial abnormality. Electronically signed by: Zac Shin MD (01/26/2020 2:18 PM) [facility]
--- NOTE | 2020-01-26 14:34 | PHYS DOC ---
Past Medical History Past Medical History: Diabetes-Type II, High Cholesterol, Hypertension Additional Past Medical Histor: cataracts Past Surgical History: No Surgical History Additional Past Surgical Histo: RIGHT KNEE SX, R&L BREAST BX; left knee Smoking Status: Never Smoker Alcohol Use: None Drug Use: None General Adult EDM: Chief Complaint: NAUSEA/VOMITING/DIARRHA HPI: HPI: Patient is a 64 year old female who was brought here by EMS from home due to dizziness, associate with nausea vomiting. Dizziness became more severe with head movement or upright position. Patient denies any chest pain, no abdominal pain, no cough or fever. Patient was admitted here in November 06, tested positive for COVID 19. Patient was discharged home on November 14, patient said she had not been feeling normal since. Patient says sometimes some days she felt good and some day she felt bad. Review of Systems: Review of Systems: Constitutional: Denies fever or chills. [] Eyes: Denies change in visual acuity. [] HENT: Denies nasal congestion or sore throat. [] Respiratory: Denies cough or shortness of breath. [] Cardiovascular: Denies chest pain or edema. [] GI: Denies abdominal pain, POSITIVE FOR nausea, vomiting, NO bloody stools or diarrhea. [] : Denies dysuria. [] Musculoskeletal: Denies back pain or joint pain. [] Integument: Denies rash. [] Neurologic: Denies headache, focal weakness or sensory changes. POSITIVE FOR DIZZINESS. Endocrine: Denies polyuria or polydipsia. [] Lymphatic: Denies swollen glands. [] Psychiatric: Denies depression or anxiety. [] Heart Score: Risk Factors: Risk Factors: DM, Current or recent (<one month) smoker, HTN, HLP, family history of CAD, obesity. Risk Scores: Score 0 - 3: 2.5% MACE over next 6 weeks - Discharge Home Score 4 - 6: 20.3% MACE over next 6 weeks - Admit for Clinical Observation Score 7 - 10: 72.7% MACE over next 6 weeks - Early Invasive Strategies Current Medications: Current Medications Medications (Trade) Dose Ordered Sig/Jossie Start Time Stop Time Status Last Admin Dose Admin Magnesium Sulfate 50 ml @ 25 mls/hr 1X ONCE 01/26/20 13:00 01/26/20 14:59 01/26/20 14:03 25 MLS/HR Metoclopramide HCl (Reglan Vial) 10 mg 1X ONCE 01/26/20 11:45 01/26/20 11:46 DC 01/26/20 11:45 10 MG Ondansetron HCl (Zofran) 4 mg 1X ONCE 01/26/20 11:30 01/26/20 11:34 DC 01/26/20 11:42 4 MG Potassium Chloride/Water 100 ml @ 100 mls/hr Q1H 01/26/20 12:45 01/26/20 16:44 01/26/20 14:04 100 MLS/HR Sodium Chloride 1,000 ml @ 1,000 mls/hr 1X ONCE 01/26/20 11:30 01/26/20 12:29 DC 01/26/20 11:42 1,000 MLS/HR Allergies: Allergies: Allergies Coded Allergies Type Severity Reaction Last Updated Verified codeine Adverse Reaction Intermediate VOMITING 01/22/15 No Physical Exam: PE: Constitutional: Well developed, well nourished, no acute distress, non-toxic appearance. [] HENT: Normocephalic, atraumatic, bilateral external ears normal, oropharynx moist, no oral exudates, nose normal. [] Eyes: PERRLA, EOMI, conjunctiva normal, no discharge. [] Neck: Normal range of motion, no tenderness, supple, no stridor. [] Cardiovascular:Heart rate regular rhythm, no murmur [] Lungs & Thorax: Bilateral breath sounds clear to auscultation [] Abdomen: Bowel sounds normal, soft, no tenderness, no masses, no pulsatile masses. [] Skin: Warm, dry, no erythema, no rash. [] Back: No tenderness, no CVA tenderness. [] Extremities: No tenderness, no cyanosis, no clubbing, ROM intact, no edema. [] Neurologic: Alert and oriented X 3, normal motor function, normal sensory function, no focal deficits noted. [] Psychologic: Affect normal, judgement normal, mood normal. [] Current Patient Data: Labs: Laboratory Tests Test 01/26/20 11:55 01/26/20 12:10 White Blood Count 9.7 x10^3/uL (4.0-11.0) Red Blood Count 4.58 x10^6/uL (3.50-5.40) Hemoglobin 9.7 g/dL (12.0-15.5) L Hematocrit 31.2 % (36.0-47.0) L Mean Corpuscular Volume 68 fL (79-100) L Mean Corpuscular Hemoglobin 21 pg (25-35) L Mean Corpuscular Hemoglobin Concent 31 g/dL (31-37) Red Cell Distribution Width 20.2 % (11.5-14.5) H Platelet Count 210 x10^3/uL (140-400) Neutrophils (%) (Auto) 58 % (31-73) Lymphocytes (%) (Auto) 37 % (24-48) Monocytes (%) (Auto) 4 % (0-9) Eosinophils (%) (Auto) 1 % (0-3) Basophils (%) (Auto) 0 % (0-3) Neutrophils # (Auto) 5.7 x10^3/uL (1.8-7.7) Lymphocytes # (Auto) 3.5 x10^3/uL (1.0-4.8) Monocytes # (Auto) 0.4 x10^3/uL (0.0-1.1) Eosinophils # (Auto) 0.1 x10^3/uL (0.0-0.7) Basophils # (Auto) 0.0 x10^3/uL (0.0-0.2) Platelet Estimate Adequate (ADEQUATE) Giant Platelets Occ Polychromasia Slight Hypochromasia Mod Anisocytosis Mod Microcytosis Marked Target Cells Occ Ovalocytes Few Prothrombin Time 13.8 SEC (11.7-14.0) Prothrombin Time INR 1.1 (0.8-1.1) Activated Partial Thromboplast Time 23 SEC (24-38) L Sodium Level 142 mmol/L (136-145) Potassium Level 2.9 mmol/L (3.5-5.1) *L Chloride Level 104 mmol/L (98-107) Carbon Dioxide Level 25 mmol/L (21-32) Anion Gap 13 (6-14) Blood Urea Nitrogen 14 mg/dL (7-20) Creatinine 0.9 mg/dL (0.6-1.0) Estimated GFR (Cockcroft-Gault) 75.8 BUN/Creatinine Ratio 16 (6-20) Glucose Level 218 mg/dL (70-99) H Calcium Level 8.4 mg/dL (8.5-10.1) L Magnesium Level 1.3 mg/dL (1.8-2.4) L Total Bilirubin 0.5 mg/dL (0.2-1.0) Aspartate Amino Transferase (AST) 12 U/L (15-37) L Alanine Aminotransferase (ALT) 17 U/L (14-59) Alkaline Phosphatase 64 U/L (46-116) Troponin I Quantitative < 0.017 ng/mL (0.000-0.055) Total Protein 6.6 g/dL (6.4-8.2) Albumin 3.3 g/dL (3.4-5.0) L Albumin/Globulin Ratio 1.0 (1.0-1.7) Lipase 80 U/L (73-393) Urine Collection Type U cath Urine Color Yellow Urine Clarity Clear Urine pH 5.5 (<5.0-8.0) Urine Specific [place] 1.020 (1.000-1.030) Urine Protein 100 mg/dL (NEG-TRACE) Urine Glucose (UA) 100 mg/dL (NEG) Urine Ketones (Stick) 15 mg/dL (NEG) Urine Blood Moderate (NEG) Urine Nitrite Negative (NEG) Urine Bilirubin Negative (NEG) Urine Urobilinogen Dipstick 1.0 mg/dL (0.2 mg/dL) Urine Leukocyte Esterase Negative (NEG) Urine RBC 6-10 /HPF (0-2) Urine WBC 1-4 /HPF (0-4) Urine Squamous Epithelial Cells Few /LPF Urine Transitional Epithelial Cells Mod /LPF Urine Amorphous Sediment Present /HPF Urine Bacteria 0 /HPF (0-FEW) Urine Hyaline Casts Moderate /HPF Urine Mucus Marked /LPF Laboratory Tests 01/26/20 11:55 Laboratory Tests 01/26/20 11:55 Vital Signs: Vital Signs Date Time Temp Pulse Resp B/P (MAP) Pulse Ox O2 Delivery O2 Flow Rate FiO2 01/26/20 12:57 78 132/61 (84) 100 Room Air 01/26/20 11:01 96.7 19 96.7 EKG: EKG: EKG was done at 1141, heart rate of 70 bpm, sinus rhythm, no ST segment elevation. Radiology/Procedures: Radiology/Procedures: [][facility] [address] [place] [address] IMAGING REPORT Signed PATIENT: FAUSTO GAY ACCOUNT: [id number] : 1955 LOCATION: ER AGE: 64 SEX: F EXAM STATUS: REG ER ORD. PHYSICIAN: GROVER MEDINA DO REASON: dizziness PROCEDURE: CT HEAD WO CONTRAST PQRS Compliance Statement: One or more of the following individualized dose reduction techniques were utilized for this examination: 1. Automated exposure control 2. Adjustment of the mA and/or kV according to patient size 3. Use of iterative reconstruction technique CT HEAD WITHOUT CONTRAST History: Reason: dizziness / Comparison: CT head without contrast, May 13, 2018. Technique: Axial images are obtained of the head from the skull base through the vertex without IV contrast. Findings: No mass-effect, midline shift, extra-axial fluid collection, hemorrhage, or obvious acute infarction is identified. Basilar cisterns are patent. The ventricles and sulci are prominent, consistent with age-related cerebral atrophy. There is minimal periventricular white matter hypoattenuation. This is a nonspecific finding but is commonly due to chronic small vessel ischemic disease. Bone windows demonstrate no acute calvarial abnormality. There is large left maxillary sinus mucous retention cyst or polyp. Small right sphenoid sinus mucous retention cyst or polyp. No air-fluid level is seen. Mastoid air cells are well aerated. IMPRESSION: No acute intracranial abnormality. Electronically signed by: Zac Shin MD (01/26/2020 2:18 PM) [facility] DICTATED and SIGNED BY: ZAC SHIN MD DATE: 01/26/20 1419 Course & Med Decision Making: Course & Med Decision Making Pertinent Labs and Imaging studies reviewed. (See chart for details) Patient is a 64-year-old female who was evaluated in the ER due to dizziness associate with nausea vomiting. Patient was found to have low potassium and low magnesium. Patient was given multiple doses of Zofran, and Reglan IV however whenever she sits up or moves her head she become dizzy, become nauseous again. Patient will be admitted to hospital for treatment. Discussed with Dr. Lawson who agreed to admit patient. Patient was evaluated by this physician who worn full PPE included N95 MASK, GOGGLE, GLOVE, GOWN. Dragon Disclaimer: Dragon Disclaimer: This electronic medical record was generated, in whole or in part, using a voice recognition dictation system. Departure Departure Impression: Primary Impression: Hypokalemia Additional Impressions: Hypomagnesemia syndrome Dizziness Disposition: 09 ADMITTED INPATIENT Admitting Physician: ADALBERTO (Dr. LAWSON) Condition: IMPROVED Referrals: SANDRA CHINO APRN (PCP) Justicifation of Admission Dx: Justifications for Admission: Justification of Admission Dx: N/A GROVER MEDINA DO Jan 26, 2020 14:34
--- NOTE | 2020-01-26 16:30 | NUR ---
The patient, FAUSTO GAY, 64 y/o, F admitted by KRISTEN LAWSON MD, was given written information regarding hospital policies, unit procedures and contact persons. Valuables were checked and left at bedside . Patient placed in isolation due to pending COVID 19. Patient did not voice any concerns at time of admission. Patient daughter spoke with nurse and updated.
[2020-01-26 17:00] VITALS: BP 172/88
[2020-01-26] MEDS ORDERED: METF500S5 PO (17:11)
[2020-01-26] MEDS ORDERED: ONDA4TAB7 PO (17:11)
[2020-01-26] MEDS ORDERED: ESCITALOPRAM OX10 MG PO (17:11)
[2020-01-26] MEDS ORDERED: POTASSIUM CHLORIDE 20 MEQ TABLET.ER. PO ONE (17:30)
[2020-01-26] MEDS ORDERED: MECLIZINE HCL 12.5 MG TABLET. PO PRN (17:33)
[2020-01-26] MEDS ORDERED: ONDANSETRON ODT 4 MG TAB.RAPDIS. PO PRN (17:45)
[2020-01-26] MEDS: clonazePAM 0.5 MG TABLET PO PRN (17:57)
[2020-01-26] MEDS: metFORMIN 500 MG TABLET PO SCH (17:57)
[2020-01-26] MEDS: ASCORBIC ACID 500 MG TABLET PO SCH (18:27)
[2020-01-26] MEDS: VITAMIN B12,B9,B6 COMPLEX 1 TABLET. PO SCH (18:27)
[2020-01-26] MEDS: ZINC SULFATE 220 MG CAPSULE. PO SCH (18:28)
[2020-01-26] MEDS: POTASSIUM CL 20MEQ D5-0.45NACL 1,000 ML IV SCH (18:28)
--- NOTE | 2020-01-26 18:41 | PDOC1 ---
History and Physical Date of Admission Date of Admission DATE: 01/26/20 TIME: 18:37 History of Present Illness History of Present Illness Ms. Galdamez is a 64 year old female who was brought here by EMS from home due to dizziness, associate with nausea vomiting. Dizziness became more severe with head movement or upright position. Patient denies any chest pain, no abdominal pain, no cough or fever. Patient was admitted here in November 06, tested positive for COVID 19. Patient was discharged home on November 14, patient said she had not been feeling normal since. Patient says sometimes some days she felt good and some day she felt bad. Past Medical History Cardiovascular: HTN Psych: Anxiety Rheumatologic: No pertinent hx Family History Family History: High Cholestrol, Hypertension Social History Smoke: No ALCOHOL: none Drugs: None Current Problem List Problem List Problems Medical Problems: (1) Dizziness Status: Acute (2) Hypokalemia Status: Acute (3) Hypomagnesemia syndrome Status: Acute Current Medications Current Medications Current Medications Sodium Chloride 1,000 ml @ 1,000 mls/hr 1X ONCE IV Last administered on 01/26/20at 11:42; Start 01/26/20 at 11:30; Stop 01/26/20 at 12:29; Status DC Ondansetron HCl (Zofran) 4 mg 1X ONCE IVP Last administered on 01/26/20at 11:42; Start 01/26/20 at 11:30; Stop 01/26/20 at 11:34; Status DC Metoclopramide HCl (Reglan Vial) 10 mg 1X ONCE IVP Last administered on 01/26/20at 11:45; Start 01/26/20 at 11:45; Stop 01/26/20 at 11:46; Status DC Potassium Chloride/Water 100 ml @ 100 mls/hr Q1H IV Last administered on 01/26/20at 15:45; Start 01/26/20 at 12:45; Stop 01/26/20 at 16:44; Status DC Magnesium Sulfate 50 ml @ 25 mls/hr 1X ONCE IV Last administered on 01/26/20at 14:03; Start 01/26/20 at 13:00; Stop 01/26/20 at 14:59; Status DC Atorvastatin Calcium (Lipitor) 40 mg QHS PO ; Start 01/26/20 at 21:00 Clonazepam (KlonoPIN) 0.5 mg PRN BID PRN PO ANXIETY / AGITATION Last administered on 01/26/20 17:57; Start 01/26/20 at 17:30 Meclizine HCl (Antivert) 25 mg PRN Q6HRS PRN PO DIZZINESS Last administered on 01/26/20 17:57; Start 01/26/20 at 17:33 Citalopram Hydrobromide (CeleXA) 20 mg DAILY PO ; Start 01/27/20 at 09:00 Metformin HCl (Glucophage) 1,000 mg BIDWMEALS PO Last administered on 01/26/20at 17:57; Start 01/26/20 at 18:00 Ondansetron HCl (Zofran Odt) 4 mg PRN Q6HRS PRN PO NAUSEA/VOMITING; Start 01/26/20 at 17:45 Losartan Potassium (Cozaar) 100 mg DAILY PO ; Start 01/27/20 at 09:00 Potassium Chloride (Klor-Con) 20 meq 1X ONCE PO Last administered on 01/26/20 17:57; Start 01/26/20 at 17:30; Stop 01/26/20 at 17:33; Status DC Hydrochlorothiazide (Microzide) 12.5 mg DAILY PO ; Start 01/27/20 at 09:00 Vitamin D (Vitamin D3) 5,000 unit DAILY PO ; Start 01/27/20 at 09:00 Enoxaparin Sodium (Lovenox 40mg Syringe) 40 mg Q12HR SQ ; Start 01/26/20 at 21:00 Vitamin B Complex (Folbic Tablet) 1 tab DAILY PO Last administered on 01/26/20at 18:27; Start 01/26/20 at 18:15 Zinc Sulfate (Orazinc) 220 mg DAILY PO Last administered on 01/26/20 18:28; Start 01/26/20 at 18:15 Ascorbic Acid (Vitamin C) 500 mg DAILY PO Last administered on 01/26/20 18:27; Start 01/26/20 at 18:15 Potassium Chloride/Dextrose/ Sod Cl 1,000 ml @ 100 mls/hr Q10H IV Last administered on 01/26/20at 18:28; Start 01/26/20 at 18:15 Active Scripts Active Meclizine Hcl 12.5 Mg Tablet 25 Mg PO Q4HRS 7 Days Reported Metformin HCl 500 Mg/5 Ml Solution 1,000 Mg PO BID Zofran (Ondansetron Hcl) 4 Mg Tablet 1 Tab PO Q6HRS Escitalopram Oxalate 10 Mg Tablet 1 Tab PO DAILY Amlodipine Besylate 5 Mg Tablet 5 Mg PO DAILY Klonopin (Clonazepam) 0.5 Mg Tablet 0.5 Mg PO PRN BID Atorvastatin Calcium 20 Mg Tablet 40 Mg PO HS Valsartan-Hctz 160-12.5 Mg Tab (Valsartan/Hydrochlorothiazide) 1 Each Tablet 1 Each PO DAILY Allergies Allergies: Coded Allergies: codeine (Unverified Adverse Reaction, Intermediate, VOMITING, 01/22/15) ROS General: YES: Chills, Fatigue, Malaise, Appetite PSYCHOLOGICAL ROS: YES: Anxiety, Irritablity, Sleep disturbances; No: Behavioral Disorder, Concentration difficultie, Decreased libido, Depression, Disorientation, Hallucinations, Hostility, Memory difficulties, Mood Swings, Obsessive thoughts, Physical abuse, Sexual abuse, Suicidal ideation, Other Eyes: No Blurry vision, No Decreased vision, No Double vision, No Dry eyes, No Excessive tearing, No Eye Pain, No Itchy Eyes, No Loss of vision, No Photophobia, No Scotomata, No Uses contacts, No Uses glasses, No Other HEENT: YES: Heacaches; No: Visual Changes, Hearing change, Nasal congestion, Nasal discharge, Oral lesions, Sinus pain, Sore Throat, Epistaxis, Sneezing, Snoring, Tinnitus, Vertigo, Vocal changes, Other Respiratory: No: Cough, Hemoptysis, Orthopnea, Pleuritic Pain, Shortness of breath, SOB with excertion, Sputum Changes, Stridor, Tachypnea, Wheezing, Other Cardiovascular: No Chest Pain, No Palpitations, No Orthopnea, No Paroxysmal Noc. Dyspnea, No Edema, No Lt Headedness, No Other Gastrointestinal: Yes Nausea, Yes Abdominal Pain Genitourinary: No Dysuria, No Frequency, No Incontinence, No Hematuria, No Retention, No Discharge, No Urgency, No Pain, No Flank Pain, No Other, No , No , No , No , No , No , No Musculoskeletal: Yes Joint Stiffness, Yes Muscular Weakness; No Gait Disturbance, No Joint Pain, No Pain In:, No Swelling In:, No Other Neurological: Yes Weakness; No Behavorial Changes, No Bowel/Bladder ControlChng, No Confusion, No Dizziness, No Gait Disturbance, No Headaches, No Impaired Coord/balance, No Memory Loss, No Numbness/Tingling, No Seizures, No Speech Problems, No Tremors, No Visual Changes, No Other Skin: No Dry Skin, No Eczema, No Hair Changes, No Lumps, No Mole Changes, No Mottling, No Nail Changes, No Pruritus, No Rash, No Skin Lesion Changes, No Other, No Acne Physical Exam General: Alert, Cooperative, mild distress HEENT: Atraumatic, Mucous membr. moist/pink Lungs: Clear to auscultation, Normal air movement Heart: no gallops, no murmurs Rectal Exam: not examined Extremities: No cyanosis, No edema Skin: No rashes Neuro: Normal speech, Normal tone, Sensation intact, Cranial nerves 3-12 NL Psych/Mental Status: Mental status NL, Mood NL Vitals Vitals Vital Signs Date Time Temp Pulse Resp B/P (MAP) Pulse Ox O2 Delivery O2 Flow Rate FiO2 01/26/20 17:00 97.7 88 16 172/88 (116) 95 Room Air 97.7 Labs Labs Laboratory Tests Test 01/26/20 11:55 01/26/20 12:10 White Blood Count 9.7 x10^3/uL (4.0-11.0) Red Blood Count 4.58 x10^6/uL (3.50-5.40) Hemoglobin 9.7 g/dL (12.0-15.5) Hematocrit 31.2 % (36.0-47.0) Mean Corpuscular Volume 68 fL (79-100) Mean Corpuscular Hemoglobin 21 pg (25-35) Mean Corpuscular Hemoglobin Concent 31 g/dL (31-37) Red Cell Distribution Width 20.2 % (11.5-14.5) Platelet Count 210 x10^3/uL (140-400) Neutrophils (%) (Auto) 58 % (31-73) Lymphocytes (%) (Auto) 37 % (24-48) Monocytes (%) (Auto) 4 % (0-9) Eosinophils (%) (Auto) 1 % (0-3) Basophils (%) (Auto) 0 % (0-3) Neutrophils # (Auto) 5.7 x10^3/uL (1.8-7.7) Lymphocytes # (Auto) 3.5 x10^3/uL (1.0-4.8) Monocytes # (Auto) 0.4 x10^3/uL (0.0-1.1) Eosinophils # (Auto) 0.1 x10^3/uL (0.0-0.7) Basophils # (Auto) 0.0 x10^3/uL (0.0-0.2) Platelet Estimate Adequate (ADEQUATE) Giant Platelets Occ Polychromasia Slight Hypochromasia Mod Anisocytosis Mod Microcytosis Marked Target Cells Occ Ovalocytes Few Prothrombin Time 13.8 SEC (11.7-14.0) Prothromb Time International Ratio 1.1 (0.8-1.1) Activated Partial Thromboplast Time 23 SEC (24-38) Sodium Level 142 mmol/L (136-145) Potassium Level 2.9 mmol/L (3.5-5.1) Chloride Level 104 mmol/L (98-107) Carbon Dioxide Level 25 mmol/L (21-32) Anion Gap 13 (6-14) Blood Urea Nitrogen 14 mg/dL (7-20) Creatinine 0.9 mg/dL (0.6-1.0) Estimated GFR (Cockcroft-Gault) 75.8 BUN/Creatinine Ratio 16 (6-20) Glucose Level 218 mg/dL (70-99) Calcium Level 8.4 mg/dL (8.5-10.1) Magnesium Level 1.3 mg/dL (1.8-2.4) Total Bilirubin 0.5 mg/dL (0.2-1.0) Aspartate Amino Transf (AST/SGOT) 12 U/L (15-37) Alanine Aminotransferase (ALT/SGPT) 17 U/L (14-59) Alkaline Phosphatase 64 U/L (46-116) Troponin I Quantitative < 0.017 ng/mL (0.000-0.055) Total Protein 6.6 g/dL (6.4-8.2) Albumin 3.3 g/dL (3.4-5.0) Albumin/Globulin Ratio 1.0 (1.0-1.7) Lipase 80 U/L (73-393) Urine Collection Type U cath Urine Color Yellow Urine Clarity Clear Urine pH 5.5 (<5.0-8.0) Urine Specific [place] 1.020 (1.000-1.030) Urine Protein 100 mg/dL (NEG-TRACE) Urine Glucose (UA) 100 mg/dL (NEG) Urine Ketones (Stick) 15 mg/dL (NEG) Urine Blood Moderate (NEG) Urine Nitrite Negative (NEG) Urine Bilirubin Negative (NEG) Urine Urobilinogen Dipstick 1.0 mg/dL (0.2 mg/dL) Urine Leukocyte Esterase Negative (NEG) Urine RBC 6-10 /HPF (0-2) Urine WBC 1-4 /HPF (0-4) Urine Squamous Epithelial Cells Few /LPF Urine Transitional Epithelial Cells Mod /LPF Urine Amorphous Sediment Present /HPF Urine Bacteria 0 /HPF (0-FEW) Urine Hyaline Casts Moderate /HPF Urine Mucus Marked /LPF Laboratory Tests Test 01/26/20 11:55 01/26/20 12:10 White Blood Count 9.7 x10^3/uL (4.0-11.0) Red Blood Count 4.58 x10^6/uL (3.50-5.40) Hemoglobin 9.7 g/dL (12.0-15.5) Hematocrit 31.2 % (36.0-47.0) Mean Corpuscular Volume 68 fL (79-100) Mean Corpuscular Hemoglobin 21 pg (25-35) Mean Corpuscular Hemoglobin Concent 31 g/dL (31-37) Red Cell Distribution Width 20.2 % (11.5-14.5) Platelet Count 210 x10^3/uL (140-400) Neutrophils (%) (Auto) 58 % (31-73) Lymphocytes (%) (Auto) 37 % (24-48) Monocytes (%) (Auto) 4 % (0-9) Eosinophils (%) (Auto) 1 % (0-3) Basophils (%) (Auto) 0 % (0-3) Neutrophils # (Auto) 5.7 x10^3/uL (1.8-7.7) Lymphocytes # (Auto) 3.5 x10^3/uL (1.0-4.8) Monocytes # (Auto) 0.4 x10^3/uL (0.0-1.1) Eosinophils # (Auto) 0.1 x10^3/uL (0.0-0.7) Basophils # (Auto) 0.0 x10^3/uL (0.0-0.2) Platelet Estimate Adequate (ADEQUATE) Giant Platelets Occ Polychromasia Slight Hypochromasia Mod Anisocytosis Mod Microcytosis Marked Target Cells Occ Ovalocytes Few Prothrombin Time 13.8 SEC (11.7-14.0) Prothromb Time International Ratio 1.1 (0.8-1.1) Activated Partial Thromboplast Time 23 SEC (24-38) Sodium Level 142 mmol/L (136-145) Potassium Level 2.9 mmol/L (3.5-5.1) Chloride Level 104 mmol/L (98-107) Carbon Dioxide Level 25 mmol/L (21-32) Anion Gap 13 (6-14) Blood Urea Nitrogen 14 mg/dL (7-20) Creatinine 0.9 mg/dL (0.6-1.0) Estimated GFR (Cockcroft-Gault) 75.8 BUN/Creatinine Ratio 16 (6-20) Glucose Level 218 mg/dL (70-99) Calcium Level 8.4 mg/dL (8.5-10.1) Magnesium Level 1.3 mg/dL (1.8-2.4) Total Bilirubin 0.5 mg/dL (0.2-1.0) Aspartate Amino Transf (AST/SGOT) 12 U/L (15-37) Alanine Aminotransferase (ALT/SGPT) 17 U/L (14-59) Alkaline Phosphatase 64 U/L (46-116) Troponin I Quantitative < 0.017 ng/mL (0.000-0.055) Total Protein 6.6 g/dL (6.4-8.2) Albumin 3.3 g/dL (3.4-5.0) Albumin/Globulin Ratio 1.0 (1.0-1.7) Lipase 80 U/L (73-393) Urine Collection Type U cath Urine Color Yellow Urine Clarity Clear Urine pH 5.5 (<5.0-8.0) Urine Specific [place] 1.020 (1.000-1.030) Urine Protein 100 mg/dL (NEG-TRACE) Urine Glucose (UA) 100 mg/dL (NEG) Urine Ketones (Stick) 15 mg/dL (NEG) Urine Blood Moderate (NEG) Urine Nitrite Negative (NEG) Urine Bilirubin Negative (NEG) Urine Urobilinogen Dipstick 1.0 mg/dL (0.2 mg/dL) Urine Leukocyte Esterase Negative (NEG) Urine RBC 6-10 /HPF (0-2) Urine WBC 1-4 /HPF (0-4) Urine Squamous Epithelial Cells Few /LPF Urine Transitional Epithelial Cells Mod /LPF Urine Amorphous Sediment Present /HPF Urine Bacteria 0 /HPF (0-FEW) Urine Hyaline Casts Moderate /HPF Urine Mucus Marked /LPF VTE Prophylaxis Ordered VTE Prophylaxis Devices: No VTE Pharmacological Prophylaxi: Yes Assessment/Plan Assessment/Plan weakness, dizzyness orthostatis - IV fluid concern for return or reinfection of COVID, reswab sent will do full vitamins, lovenox ordered, consider BID if tests pos,. hypokalemia anorexia, Justicifation of Admission Dx: Justifications for Admission: Justification of Admission Dx: Yes Comments: suspect COVId, weakness, debility, hypokalemia, anorexia KRISTEN LAWSON MD Jan 26, 2020 18:41
[2020-01-26 19:34] VITALS: BP 141/61
[2020-01-26] MEDS: ENOXAPARIN 40 MG/0.4 ML SYRINGE. SQ SCH (20:41)
[2020-01-26] MEDS ORDERED: ATORVASTATIN CALCIUM 40 MG TABLET. PO SCH (21:00)
[2020-01-26] MEDS ORDERED: ACETAMINOPHEN 325 MG TABLET. PO PRN (23:00)
[2020-01-26 23:19] VITALS: BP 140/64
[2020-01-27] MEDS: POTASSIUM CL 20MEQ D5-0.45NACL 1,000 ML IV SCH ×2 (02:53→13:21)
[2020-01-27 03:04] VITALS: BP 140/75
[2020-01-27 04:33] LABS: BASO % 1 % (0-3); EOS # 0.1 x10^3/uL (0.0-0.7); EOS % 1 % (0-3); HEMATOCRIT 31.6 % (36.0-47.0); HEMOGLOBIN 9.8 g/dL (12.0-15.5); LYMPH # 2.8 x10^3/uL (1.0-4.8); LYMPH % 38 % (24-48); MEAN CORPUSCULAR HEMOGLOBIN 21 pg (25-35); MEAN CORPUSCULAR HGB CONC 31 g/dL (31-37); MEAN CORPUSCULAR VOLUME 68 fL (79-100); MONO # 0.5 x10^3/uL (0.0-1.1); MONO % 7 % (0-9); NEUT # 4.1 x10^3/uL (1.8-7.7); NEUT % 54 % (31-73); PLATELET COUNT 201 x10^3/uL (140-400); RED BLOOD COUNT 4.64 x10^6/uL (3.50-5.40); RED CELL DISTRIBUTION WIDTH 20.3 % (11.5-14.5); WHITE BLOOD COUNT 7.6 x10^3/uL (4.0-11.0)
[2020-01-27 05:05] LABS: ALBUMIN 3.1 g/dL (3.4-5.0); ALBUMIN/GLOBULIN RATIO 0.9 (1.0-1.7); CALCIUM 8.5 mg/dL (8.5-10.1); CREATININE 0.8 mg/dL (0.6-1.0); GFR 86.8; POTASSIUM 3.6 mmol/L (3.5-5.1); TOTAL BILIRUBIN 0.4 mg/dL (0.2-1.0); TOTAL PROTEIN 6.4 g/dL (6.4-8.2)
[2020-01-27 07:00] VITALS: BP_SYST 143; BP_SYST 151; BP_SYST 153; BP_DIAS 72; BP_DIAS 74; BP_DIAS 77
[2020-01-27] MEDS: ZINC SULFATE 220 MG CAPSULE. PO SCH (08:06)
[2020-01-27] MEDS: metFORMIN 500 MG TABLET PO SCH ×2 (08:07→16:26)
[2020-01-27] MEDS: VITAMIN B12,B9,B6 COMPLEX 1 TABLET. PO SCH (08:08)
[2020-01-27] MEDS: ASCORBIC ACID 500 MG TABLET PO SCH (08:08)
[2020-01-27] MEDS: clonazePAM 0.5 MG TABLET PO PRN (08:21)
[2020-01-27] MEDS ORDERED: LOSARTAN POTASSIUM 50 MG TABLET. PO SCH (09:00)
[2020-01-27] MEDS ORDERED: CITALOPRAM 20 MG TABLET. PO SCH (09:00)
[2020-01-27] MEDS ORDERED: CHOLECALCIFEROL (VITAMIN D3) 5,000 UNIT CAPSULE PO SCH (09:00)
[2020-01-27] MEDS ORDERED: hydroCHLOROthiazide 12.5 MG CAPSULE PO SCH (09:00)
[2020-01-27] MEDS: ENOXAPARIN 40 MG/0.4 ML SYRINGE. SQ SCH (09:30)
[2020-01-27 11:00] VITALS: BP 132/58
--- NOTE | 2020-01-27 11:49 | PDOC ---
[employer] PROGRESS NOTE Chief Complaint Chief Complaint Recent COVID-19 resolving Post COVID-19 weakness and dizziness and overall not feeling well History of: Diabetes-Type II, High Cholesterol, Hypertension Additional Past Medical Histor: cataracts Past Surgical History: No Surgical History Additional Past Surgical Histo: RIGHT KNEE SX, R&L BREAST BX; left knee History of Present Illness History of Present Illness 01/27/2020 Patient seen and examined Discussed with RN She is overall doing well but we are still awaiting her COVID-19 testing If that is negative I may let her go home this afternoon Vitals/I&O Vitals/I&O: Vital Signs Date Time Temp Pulse Resp B/P (MAP) Pulse Ox O2 Delivery O2 Flow Rate FiO2 01/27/20 11:00 97.8 74 18 132/58 (82) 100 Room Air 97.8 I & O 01/26/20 01/26/20 01/27/20 15:00 23:00 07:00 Intake Total 1100 ml 150 ml 400 ml Balance 1100 ml 150 ml 400 ml Physical Exam General: Alert, Cooperative, mild distress Heart: Regular rate Lungs: Clear Abdomen: Normal bowel sounds Extremities: No cyanosis, No edema Skin: No rashes Labs Labs: Laboratory Tests Test 01/26/20 11:55 01/26/20 12:10 01/26/20 20:52 01/27/20 04:10 White Blood Count 9.7 x10^3/uL (4.0-11.0) 7.6 x10^3/uL (4.0-11.0) Red Blood Count 4.58 x10^6/uL (3.50-5.40) 4.64 x10^6/uL (3.50-5.40) Hemoglobin 9.7 g/dL (12.0-15.5) 9.8 g/dL (12.0-15.5) Hematocrit 31.2 % (36.0-47.0) 31.6 % (36.0-47.0) Mean Corpuscular Volume 68 fL (79-100) 68 fL (79-100) Mean Corpuscular Hemoglobin 21 pg (25-35) 21 pg (25-35) Mean Corpuscular Hemoglobin Concent 31 g/dL (31-37) 31 g/dL (31-37) Red Cell Distribution Width 20.2 % (11.5-14.5) 20.3 % (11.5-14.5) Platelet Count 210 x10^3/uL (140-400) 201 x10^3/uL (140-400) Neutrophils (%) (Auto) 58 % (31-73) 54 % (31-73) Lymphocytes (%) (Auto) 37 % (24-48) 38 % (24-48) Monocytes (%) (Auto) 4 % (0-9) 7 % (0-9) Eosinophils (%) (Auto) 1 % (0-3) 1 % (0-3) Basophils (%) (Auto) 0 % (0-3) 1 % (0-3) Neutrophils # (Auto) 5.7 x10^3/uL (1.8-7.7) 4.1 x10^3/uL (1.8-7.7) Lymphocytes # (Auto) 3.5 x10^3/uL (1.0-4.8) 2.8 x10^3/uL (1.0-4.8) Monocytes # (Auto) 0.4 x10^3/uL (0.0-1.1) 0.5 x10^3/uL (0.0-1.1) Eosinophils # (Auto) 0.1 x10^3/uL (0.0-0.7) 0.1 x10^3/uL (0.0-0.7) Basophils # (Auto) 0.0 x10^3/uL (0.0-0.2) 0.0 x10^3/uL (0.0-0.2) Platelet Estimate Adequate (ADEQUATE) Giant Platelets Occ Polychromasia Slight Hypochromasia Mod Anisocytosis Mod Microcytosis Marked Target Cells Occ Ovalocytes Few Prothrombin Time 13.8 SEC (11.7-14.0) Prothromb Time International Ratio 1.1 (0.8-1.1) Activated Partial Thromboplast Time 23 SEC (24-38) Sodium Level 142 mmol/L (136-145) 143 mmol/L (136-145) Potassium Level 2.9 mmol/L (3.5-5.1) 3.6 mmol/L (3.5-5.1) Chloride Level 104 mmol/L (98-107) 107 mmol/L (98-107) Carbon Dioxide Level 25 mmol/L (21-32) 28 mmol/L (21-32) Anion Gap 13 (6-14) 8 (6-14) Blood Urea Nitrogen 14 mg/dL (7-20) 8 mg/dL (7-20) Creatinine 0.9 mg/dL (0.6-1.0) 0.8 mg/dL (0.6-1.0) Estimated GFR (Cockcroft-Gault) 75.8 86.8 BUN/Creatinine Ratio 16 (6-20) 10 (6-20) Glucose Level 218 mg/dL (70-99) 113 mg/dL (70-99) Calcium Level 8.4 mg/dL (8.5-10.1) 8.5 mg/dL (8.5-10.1) Magnesium Level 1.3 mg/dL (1.8-2.4) Total Bilirubin 0.5 mg/dL (0.2-1.0) 0.4 mg/dL (0.2-1.0) Aspartate Amino Transf (AST/SGOT) 12 U/L (15-37) 13 U/L (15-37) Alanine Aminotransferase (ALT/SGPT) 17 U/L (14-59) 18 U/L (14-59) Alkaline Phosphatase 64 U/L (46-116) 62 U/L (46-116) Troponin I Quantitative < 0.017 ng/mL (0.000-0.055) Total Protein 6.6 g/dL (6.4-8.2) 6.4 g/dL (6.4-8.2) Albumin 3.3 g/dL (3.4-5.0) 3.1 g/dL (3.4-5.0) Albumin/Globulin Ratio 1.0 (1.0-1.7) 0.9 (1.0-1.7) Lipase 80 U/L (73-393) Urine Collection Type U cath Urine Color Yellow Urine Clarity Clear Urine pH 5.5 (<5.0-8.0) Urine Specific [place] 1.020 (1.000-1.030) Urine Protein 100 mg/dL (NEG-TRACE) Urine Glucose (UA) 100 mg/dL (NEG) Urine Ketones (Stick) 15 mg/dL (NEG) Urine Blood Moderate (NEG) Urine Nitrite Negative (NEG) Urine Bilirubin Negative (NEG) Urine Urobilinogen Dipstick 1.0 mg/dL (0.2 mg/dL) Urine Leukocyte Esterase Negative (NEG) Urine RBC 6-10 /HPF (0-2) Urine WBC 1-4 /HPF (0-4) Urine Squamous Epithelial Cells Few /LPF Urine Transitional Epithelial Cells Mod /LPF Urine Amorphous Sediment Present /HPF Urine Bacteria 0 /HPF (0-FEW) Urine Hyaline Casts Moderate /HPF Urine Mucus Marked /LPF Glucose (Fingerstick) 128 mg/dL (70-99) Iron Level 32 ug/dL (50-170) Total Iron Binding Capacity 214 ug/dL (250-450) Iron Saturation 15 % (15-34) Test 01/27/20 07:30 01/27/20 10:57 Glucose (Fingerstick) 115 mg/dL (70-99) 128 mg/dL (70-99) Review of Systems Review of Systems: No new complaints states she feels a little better Assessment and Plan Assessmemt and Plan Problems Medical Problems: (1) Dizziness Status: Acute (2) Hypokalemia Status: Acute (3) Hypomagnesemia syndrome Status: Acute Recent COVID-19 resolving Post COVID-19 weakness and dizziness and overall not feeling well History of: Diabetes-Type II, High Cholesterol, Hypertension Additional Past Medical Histor: cataracts Past Surgical History: No Surgical History Additional Past Surgical Histo: RIGHT KNEE SX, R&L BREAST BX; left knee Plan Awaiting Covid-19 testing If that is negative she could probably go home For now we will continue home meds DVT prophylaxis full code Comment Review of Relevant I have reviewed the following items rudy (where applicable) has been applied. Medications: Current Medications Medications (Trade) Dose Ordered Sig/Jossie Route PRN Reason Start Time Stop Time Status Last Admin Dose Admin Potassium Chloride/Water 100 ml @ 100 mls/hr Q1H IV 01/26/20 12:45 01/26/20 16:44 DC 01/26/20 15:45 Magnesium Sulfate 50 ml @ 25 mls/hr 1X ONCE IV 01/26/20 13:00 01/26/20 14:59 DC 01/26/20 14:03 Atorvastatin Calcium (Lipitor) 40 mg QHS PO 01/26/20 21:00 01/26/20 20:41 Clonazepam (KlonoPIN) 0.5 mg PRN BID PRN PO ANXIETY / AGITATION 01/26/20 17:30 01/27/20 08:21 Meclizine HCl (Antivert) 25 mg PRN Q6HRS PRN PO DIZZINESS 01/26/20 17:33 01/26/20 17:57 Citalopram Hydrobromide (CeleXA) 20 mg DAILY PO 01/27/20 09:00 01/27/20 08:07 Metformin HCl (Glucophage) 1,000 mg BIDWMEALS PO 01/26/20 18:00 01/27/20 08:07 Losartan Potassium (Cozaar) 100 mg DAILY PO 01/27/20 09:00 01/27/20 08:07 Potassium Chloride (Klor-Con) 20 meq 1X ONCE PO 01/26/20 17:30 01/26/20 17:33 DC 01/26/20 17:57 Hydrochlorothiazide (Microzide) 12.5 mg DAILY PO 01/27/20 09:00 01/27/20 08:08 Vitamin D (Vitamin D3) 5,000 unit DAILY PO 01/27/20 09:00 01/27/20 08:07 Enoxaparin Sodium (Lovenox 40mg Syringe) 40 mg Q12HR SQ 01/26/20 21:00 01/27/20 09:30 Vitamin B Complex (Folbic Tablet) 1 tab DAILY PO 01/26/20 18:15 01/27/20 08:08 Zinc Sulfate (Orazinc) 220 mg DAILY PO 01/26/20 18:15 01/27/20 08:06 Ascorbic Acid (Vitamin C) 500 mg DAILY PO 01/26/20 18:15 01/27/20 08:08 Potassium Chloride/Dextrose/ Sod Cl 1,000 ml @ 100 mls/hr Q10H IV 01/26/20 18:15 01/27/20 02:53 Acetaminophen (Tylenol) 650 mg PRN Q6HRS PRN PO MILD PAIN / TEMP > 100.3'F 01/26/20 23:00 01/26/20 23:26 Justicifation of Admission Dx: Justifications for Admission: Justification of Admission Dx: Yes EVANS DORAN III DO Jan 27, 2020 11:49
--- NOTE | 2020-01-27 12:42 | DS ---
DATE OF DISCHARGE: 01/27/2020 ADMISSION DIAGNOSES: Hypokalemia, hypomagnesemia, dizziness, recent COVID-19 infection. DISCHARGE DIAGNOSIS: Resolving electrolyte disturbance. HOSPITAL COURSE: The patient is a pleasant elderly female who presented with weakness and was noted to have hypokalemia and hypomagnesemia. She was also dizzy. She did have COVID-19 recently and so she thought that might be playing a role. We admitted the patient, corrected her electrolytes. This morning, I saw and examined her. She is doing well. We still have COVID-19 test pending, but if that is negative, I went ahead and put a discharge in for her to get home and see her doctor in a week. DISPOSITION: Home. ACTIVITY: As tolerated. DIET: Low sodium. MEDICATIONS: Please see the MRAD. TOTAL TIME: 32 minutes. HÉCTORL Rissa DORAN DO DR: LARRY/angela JOB#: [id number] / [id number]
[2020-01-27 14:54] VITALS: BP 132/61
[2020-01-27] MEDS ORDERED: clonazePAM 0.5 MG TABLET PO PRN (16:00)
--- NOTE | 2020-01-27 19:15 | NUR ---
Pt discharged home with assist by wheelchair to car. No complaints noted at this time. Pt verbalize understanding of discharge instructions. Pt instructed to call or report to ED with any complaints. Pt verbalize understanding.
== END 2020-01-27 19:15 | disposition home or self-care (01) | DRG 641 ==
LOC: ER 11:01 → 6 SOUTH 15:06
PROVIDERS: ADMIT Internal Medicine; ATTEND Internal Medicine
DX: E87.6 Hypokalemia (principal); Z68.41 Body mass index [BMI] 40.0-44.9, adult; E83.42 Hypomagnesemia; F41.9 Anxiety disorder, unspecified; Z20.828 Contact with and (suspected) exposure to other viral communicable diseases; E11.9 Type 2 diabetes mellitus without complications; R63.0 Anorexia; I10 Essential (primary) hypertension; E78.00 Pure hypercholesterolemia, unspecified; Z82.49 Family history of ischemic heart disease and other diseases of the circulatory system; Z79.899 Other long term (current) drug therapy; Z88.5 Allergy status to narcotic agent; Z84.89 Family history of other specified conditions
CPT/HCPCS: 36415; 70450; 80053; 81001; 82962; 83540; 83550; 83690; 83735; 84484; 85025; 85610; 85730; 93005; 96361; 96365; 96366; 96375; 99285; J1650; J2405; J2765; J3475; J3480; J7030; G0378; J8597; U0003-CS

== ENCOUNTER → 2020-06-24 | Outpatient (CLI) | payer OTHER ==
[~2020-06-24] MED LIST changes: +AMLO-186 PO; -AMLO5TAB10 PO; +ESCITALOPRAM OX10 MG PO; +METF500S5 PO; +ONDA4TAB7 PO
--- NOTE | 2020-06-24 12:32 | KCIC ---
PROCEDURE: ANKLE LEFT 2V, FOOT LEFT 3V, SHOULDER 2+V LEFT STUDY DATE: 06/24/2020 CLINICAL INDICATION / HISTORY: Reason: LEFT ANKLE PAIN / Spl. Instructions: Pain across top and anterior foot anf joint line since a fall 1 week ago. / History: . TECHNIQUE: AP, lateral and oblique views of the left foot. COMPARISON: None FINDINGS: No fracture or dislocation is identified. Mild bunion deformity at the first MTP joint is present. The bone density is normal. The joint space widths are maintained, and there are no erosions to suggest an inflammatory arthropathy. No soft tissue abnormality is seen. IMPRESSION: No acute osseous abnormality. PROCEDURE: ANKLE LEFT 2V, FOOT LEFT 3V, SHOULDER 2+V LEFT STUDY DATE: 06/24/2020 CLINICAL INDICATION / HISTORY: Reason: LEFT ANKLE PAIN / Spl. Instructions: Pain across top and anterior foot anf joint line since a fall 1 week ago. / History: . TECHNIQUE: Left ankle 3 views. COMPARISON: None FINDINGS: The ankle mortise is approximated, and the talar dome is unremarkable. The joint space widths are maintained. No fracture or dislocation is identified. No soft tissue swelling along the anterior aspect of the left ankle joint is present.. IMPRESSION: No acute osseous abnormality. Soft tissue stranding anterior to the left ankle joint is suggestive of an ankle sprain. No malalignment. PROCEDURE: ANKLE LEFT 2V, FOOT LEFT 3V, SHOULDER 2+V LEFT STUDY DATE: 06/24/2020 CLINICAL INDICATION / HISTORY: Reason: LEFT ANKLE PAIN / Spl. Instructions: Pain across top and anterior foot anf joint line since a fall 1 week ago. / History: . TECHNIQUE: AP internal and external rotation views with a Y- view were obtained. COMPARISON: None FINDINGS: No fracture, dislocation or bone destruction is identified. Small circumscribed partially imaged ossific density at the superior aspect of the glenoid rim is favored to be a loose body. Mild joint space narrowing of the glenohumeral joint is present. There are mild degenerative changes at the left AC joint. No calcifications are seen in relation to the rotator cuff insertion. IMPRESSION: No fracture or dislocation. Mild degenerative changes in the glenohumeral and acromioclavicular joints with a possible small loose body in the glenohumeral joint.. Electronically signed by: Ivelisse Handley MD (06/24/2020 12:29 PM) [id number]
== END ==
LOC: KCIC 11:21
PROVIDERS: ATTEND Nurse Practitioner Family
DX: M20.62 Acquired deformities of toe(s), unspecified, left foot (principal); M25.572 Pain in left ankle and joints of left foot; M79.672 Pain in left foot; M25.512 Pain in left shoulder
CPT/HCPCS: 73030; 73600; 73630

== ENCOUNTER → 2020-10-01 | Outpatient (CLI) | payer OTHER ==
[~2020-10-01] MED LIST changes: -MECL12.573 PO; +MECL12.574 PO
--- NOTE | 2020-10-01 14:29 | RAD ---
Examination: 1. Bilateral diagnostic mammogram 2. Limited right breast ultrasound INDICATION: 65-year-old woman due for screening presents for follow-up of probably benign nodule in t he superior right breast. COMPARISON: Right digital diagnostic mammogram of 09/05/2019 and bilateral diagnostic mammogram of 02/14. Right breast ultrasound of 09/05/2019 TECHNIQUE: Bilateral CC and MLO views were obtained with 2-D technique and reviewed with computer-aid ed detection. Targeted ultrasound was subsequently pursued in the area of previous sonographic intere st. FINDINGS: Scattered fibroglandular densities. Scattered benign calcifications bilaterally are present. Nodular parenchymal pattern compatible with benign cystic change is also noted along with bilateral l ow axillary and intramammary lymph nodes. No developing mass, suspicious calcification or architectural distortion is identified. Targeted ultrasound of the right breast at the 2:30 o'clock position 2 cm from the nipple shows a wel l circumscribed parallel orientation 3 mm nodule that is stable to marginally decreased from a previo us breast ultrasound. IMPRESSION: Benign findings on bilateral mammogram and right breast ultrasound. No evidence of malignancy. BI-RADS Category 2 Benign findings Recommend return to routine screening next due in one year. Patient entered into a reminder system with targeted due date for next mammogram. Electronically signed by: Ivelisse Handley MD (10/01/2020 2:27 PM) [id number]
== END ==
LOC: MAMMO 10:17
PROVIDERS: ATTEND Nurse Practitioner Family
DX: R92.8 Other abnormal and inconclusive findings on diagnostic imaging of breast (principal)
CPT/HCPCS: 76641; 77066

== ENCOUNTER → 2020-10-22 | Outpatient (CLI) | payer OTHER ==
[~2020-10-22] MED LIST changes: -MECL12.574 PO; +MECL12.582 PO
--- NOTE | 2020-10-22 16:07 | KCIC ---
EXAM: Pelvic sonogram. HISTORY: Pelvic pressure. TECHNIQUE: Sonographic imaging of the pelvis was performed. COMPARISON: None. FINDINGS: The uterus measures 7.0 x 6.1 x 4.3 cm. There is suboptimal evaluation of the uterus due to shadowing from calcified fibroids. The endometrial stripe is not seen. The ovaries are obscured. The re is no pelvic free fluid. IMPRESSION: 1. Calcified uterine fibroids, with evaluation of the uterus. These are better characterized on the C T performed 11/07/2019. 2. Obscured ovaries. Electronically signed by: Maylin Collazo MD (10/22/2020 4:04 PM) [id number]
== END ==
LOC: KCIC US 15:02
PROVIDERS: ATTEND Nurse Practitioner Family
DX: D25.9 Leiomyoma of uterus, unspecified (principal)
CPT/HCPCS: 76830; 76856

== ENCOUNTER → 2021-03-03 | Outpatient (CLI) | payer OTHER ==
--- NOTE | 2021-03-03 11:04 | KCIC ---
EXAMINATION: Chest radiograph. VIEWS: 2 COMPARISON: None INDICATION:66 years, Female, essentially hypertension, shortness of breath, Covid 19. FINDINGS: Normal cardiomediastinal silhouette. No focal consolidation. No pleural effusion or pneumothorax. No acute osseous process. IMPRESSION: No acute cardiopulmonary process. Electronically signed by: Kashif Hills MD (03/03/2021 11:01 AM) [id number]
== END ==
LOC: KCIC 10:16
PROVIDERS: ATTEND Nurse Practitioner Family
DX: I10 Essential (primary) hypertension (principal); R06.02 Shortness of breath
CPT/HCPCS: 71046

== ENCOUNTER → 2021-04-28 | Outpatient (CLI) | payer OTHER ==
[2021-04-28 10:56] LABS: BASO % 1 % (0-3); EOS # 0.1 x10^3/uL (0.0-0.7); EOS % 1 % (0-3); HEMATOCRIT 33.5 % (36.0-47.0); HEMOGLOBIN 10.6 g/dL (12.0-15.5); LYMPH # 2.8 x10^3/uL (1.0-4.8); LYMPH % 46 % (24-48); MEAN CORPUSCULAR HEMOGLOBIN 21 pg (25-35); MEAN CORPUSCULAR HGB CONC 32 g/dL (31-37); MEAN CORPUSCULAR VOLUME 66 fL (79-100); MONO # 0.4 x10^3/uL (0.0-1.1); MONO % 7 % (0-9); NEUT # 2.8 x10^3/uL (1.8-7.7); NEUT % 45 % (31-73); PLATELET COUNT 227 x10^3/uL (140-400); RED BLOOD COUNT 5.05 x10^6/uL (3.50-5.40); RED CELL DISTRIBUTION WIDTH 19.1 % (11.5-14.5); WHITE BLOOD COUNT 6.1 x10^3/uL (4.0-11.0)
[2021-04-28 11:03] LABS: CALCIUM 9.5 mg/dL (8.5-10.1); CREATININE 0.8 mg/dL (0.6-1.0); GFR 86.3; POTASSIUM 4.3 mmol/L (3.5-5.1)
[2021-04-28 12:45] LABS: ANISOCYTOSIS PRESENT; HYPOCHROMIA MOD; MICROCYTOSIS MARKED; PLT ESTIMATE ADEQUATE (ADEQUATE)
[2021-04-28 12:46] LABS: OVALOCYTES OCC; POIKILOCYTOSIS PRESENT; TARGET CELLS OCC
== END ==
LOC: LAB 10:35
PROVIDERS: ATTEND Internal Medicine Pulmonary Disease
DX: R06.02 Shortness of breath (principal)
CPT/HCPCS: 36415; 80048; 84443; 85025

== ENCOUNTER → 2021-05-08 | Outpatient (CLI) | payer OTHER ==
--- NOTE | 2021-05-08 17:04 | CARD ---
MR#: [id number] Date of Study: 05/08/2021 Ordering Physician: SANDRA WISEMAN, Referring Physician: SANDRA WISEMAN, Tech: Regina Sainz, [facility] APPROVED REPORT EXAM: Two-dimensional and M-mode echocardiogram with Doppler and color Doppler. Other Information Quality : AverageHR: 76bpm INDICATION Dyspnea Chest Pain RISK FACTORS Hypertension Hyperlipidemia Diabetes Asthma 2D DIMENSIONS Left Atrium(2D)4.0 (1.6-4.0cm)IVSd1.0 (0.7-1.1cm) Aortic Root(2D)2.9 (2.0-3.7cm)LVDd4.8 (3.9-5.9cm) LVOT Diameter2.0 (1.8-2.4cm)PWd0.9 (0.7-1.1cm) LVDs2.8 (2.5-4.0cm)FS (%) 41.6 % SV78.7 mlLVEF(%)72.4 (>50%) Aortic Valve AoV Peak Alen.182.1cm/sAoV VTI36.9cm AO Peak GR.13.3mmHgLVOT Peak Alen.109.9cm/s AO Mean GR.6mmHgAVA (VMAX)1.86cm2 Mitral Valve MV E Wzghfoyh98.2cm/sMV E Peak Gr.3mmHg MV DECEL [id number] A Ufyyvtii86.6cm/s MV E Mean Gr.2mmHgE/A Ratio0.8 Pulmonary Valve PV Peak Aaaezdkl08.0cm/s Tricuspid Valve TR P. Qcfepmhu363hn/sRAP FROYSUIW9zkDm TR Peak Gr.97mrQuPCIR70upSp Pulmonary Vein S1 Wnbihmva91.8cm/sD2 Ygehtfhh62.1cm/s PVa [id number] LEFT VENTRICLE The left ventricle is normal size. There is normal left ventricular wall thickness. The left ventricu lar systolic function is normal. The Ejection Fraction is 55-60%. There is normal LV segmental wall m otion. Transmitral Doppler flow pattern is Grade I-abnormal relaxation pattern. RIGHT VENTRICLE The right ventricle is normal size. There is normal right ventricular wall thickness. The right ventr icular systolic function is normal. ATRIA The left atrium size is normal. The right atrium size is normal. The interatrial septum is intact wit h no evidence for an atrial septal defect or patent foramen ovale as noted on 2-D or Doppler imaging. AORTIC VALVE The aortic valve is normal in structure and function. Doppler and Color Flow revealed no significant aortic regurgitation. There is no significant aortic valvular stenosis. Calculated aortic valve area is 2.2 cm2 with maximum pressure gradient of 13 mmHg and mean pressure gradient of 6 mmHg. MITRAL VALVE The mitral valve is normal in structure and function. There is no evidence of mitral valve prolapse. There is no mitral valve stenosis. Doppler and Color-flow revealed trace mitral regurgitation. TRICUSPID VALVE The tricuspid valve is normal in structure and function. Doppler and Color Flow revealed trace to mil d tricuspid regurgitation There is no tricuspid valve stenosis. GREAT VESSELS The aortic root is normal in size. The ascending aorta is normal in size. The IVC is normal in size a nd collapses >50% with inspiration. PERICARDIAL EFFUSION There is no evidence of significant pericardial effusion. Critical Notification Critical Value: No <Conclusion> The left ventricular systolic function is normal. The Ejection Fraction is 55-60%. There is normal LV segmental wall motion. Transmitral Doppler flow pattern is Grade I-abnormal relaxation pattern. Trace mitral regurgitation. Trace to mild tricuspid regurgitation There is no evidence of significant pericardial effusion. Signed by : Hong Durham, Electronically Approved : 05/08/2021 17:03:52
== END ==
LOC: ECHO 10:10
PROVIDERS: ATTEND Internal Medicine Pulmonary Disease
DX: I07.1 Rheumatic tricuspid insufficiency (principal); R07.9 Chest pain, unspecified; R06.02 Shortness of breath; I10 Essential (primary) hypertension; E11.9 Type 2 diabetes mellitus without complications; E78.5 Hyperlipidemia, unspecified; J45.909 Unspecified asthma, uncomplicated
CPT/HCPCS: 93306

== ENCOUNTER → 2021-05-12 | Outpatient (CLI) | payer OTHER ==
--- NOTE | 2021-05-12 16:42 | RAD ---
EXAM: CT CHEST WITHOUT CONTRAST HISTORY: Shortness of breath post Covid, pneumonia COMPARISON: CT chest 11/07/2019 TECHNIQUE: Helical CT of the chest performed without contrast. Coronal and sagittal reformats were o btained. One or more of the following individualized dose reduction techniques were utilized for this examinat ion: 1. Automated exposure control 2. Adjustment of the mA and/or kV according to patient size 3. Use of iterative reconstruction technique. FINDINGS: Thyroid gland and thoracic inlet: Thyroid gland is normal. Heart and great vessels: Heart is normal in size. No pericardial effusion. There are coronary artery calcifications. The thoracic aorta is calcified. Mediastinum and krista: Calcified right hilar lymph nodes are unchanged. No mediastinal lymphadenopathy . Lungs and pleura: A calcified granuloma in the left lower lobe is unchanged. Scattered bilateral grou nd glass opacities have resolved. Central airways are clear. No pleural effusion. Chest wall and axillae: No axillary lymphadenopathy. Upper abdomen: There are calcified splenic and hepatic granulomas. Bones: No acute osseous abnormality. IMPRESSION: 1. Interval resolution of pulmonary opacities. No new abnormality. 2. Sequela of granulomatous disease. Electronically signed by: Adriana Melgar MD (05/12/2021 4:39 PM) [id number]
== END ==
LOC: CT 10:28
PROVIDERS: ATTEND Internal Medicine Pulmonary Disease
DX: U07.1 COVID-19 (principal); J12.89 Other viral pneumonia; J84.10 Pulmonary fibrosis, unspecified; I25.10 Atherosclerotic heart disease of native coronary artery without angina pectoris; I70.0 Atherosclerosis of aorta; R59.0 Localized enlarged lymph nodes; K75.3 Granulomatous hepatitis, not elsewhere classified; D73.89 Other diseases of spleen
CPT/HCPCS: 71250

== ENCOUNTER → 2021-05-14 | Outpatient (CLI) | payer OTHER ==
--- NOTE | 2021-05-14 12:23 | RAD ---
MR#: [id number] Date of Study: 05/14/2021 Ordering Physician: SANDRA WISEMAN Referring Physician: FELIX COWART Tech: APPROVED REPORT Test Type: Exercise Stress Nurse/Tech: Jennyfer Keenan R.N. Test Indications: WEINER Cardiac History: asthma, htn, dm Medications: See Electronic Medical Record Medical History: See Electronic Medical Record Resting ECG: SR Resting Heart Rate: 78 bpm Resting Blood Pressure: 124/68mmHg Pretest Chest Pain: No chest pain Nurse/Tech Notes lungs cta, heart tones regular Stress Symptoms No chest pain or symptoms. POST EXERCISE Reason for Termination: Reached target heart rate Target HR: Yes Max HR: 147 bpm 97% of Maximum Predicted HR: 152 bpm Exercise duration: 4:37 min:sec, 2 Stage Exercise capacity: 4.6METs Max Blood Pressure: 172/82mmHg Blood Pressure response to exercise: Normal blood pressure response during stress. Heart Rate response to exercise: normal Chest Pain: No. Arrhythmia: No. INTERPRETATION Stress EKG Conclusion: The resting EKG showed a sinus rhythm with mild nonspecific ST-T wave changes. The stress EKG showed no significant change from baseline. No EKG evidence of stress-induced ischemia. Conclusion 1. Reasonably good exercise tolerance with the patient walking for 4 minutes and 37 seconds on a Bruc e protocol. 2. Appropriate heart rate and blood pressure response to exertion. 3. No reported chest pain with exertion. 4. No EKG evidence of stress-induced ischemia. 5. Moderately low to low risk exercise treadmill stress test. Signed by : Jayden Ortiz MD Electronically Approved : 05/14/2021 12:22:35
== END ==
LOC: NM 11:35
PROVIDERS: ATTEND Internal Medicine Pulmonary Disease
DX: R07.9 Chest pain, unspecified (principal); R06.02 Shortness of breath
CPT/HCPCS: 93017

== ENCOUNTER → 2021-09-08 | Outpatient (CLI) | payer OTHER ==
--- NOTE | 2021-09-08 13:34 | KCIC ---
EXAM: Right hand, 3 views. HISTORY: Pain. COMPARISON: None. FINDINGS: 3 views of the right hand are obtained. There is no fracture, dislocation or subluxation. T here is no suspicious osseous lesion. There is no foreign body. IMPRESSION: No acute osseous finding. Electronically signed by: Maylin Collazo MD (09/08/2021 1:31 PM) [id number]
== END ==
LOC: KCIC 12:31
PROVIDERS: ATTEND Nurse Practitioner Family
DX: M79.644 Pain in right finger(s) (principal)
CPT/HCPCS: 73130

== ENCOUNTER → 2021-11-05 | Outpatient (CLI) | payer OTHER ==
--- NOTE | 2021-11-05 13:04 | KCIC ---
Digital Mammogram Bilateral History: Routine screening Technique: 2-D digital CC and MLO views were obtained. CAD - computer aided detection was utilize d. Comparison: Mammograms from 10/01/2020, 09/05/2019, the 03/07/2019, and 11/23/2017.. Findings: Breast Tissue Density B : There are scattered areas of fibroglandular density There are no suspicious masses, malignant appearing calcifications, or areas of architectural distort ion. There are multiple similar groups of calcifications in both breasts which are consistent with fi broadenomas/fibroadenomatoid change. Impression: No evidence of malignancy. Assessment: BI-RADS 2. Benign findings. Recommendation: Routine screening mammograms.. The patient will receive a letter with the results in the mail. Patient information will be entered i nto the mammography reminder system with a target recall date for the next mammogram. A reminder aubrey er will be generated. Electronically signed by: Aubrie Etienne MD (11/05/2021 1:02 PM) [id number]
== END ==
LOC: KCIC MAMMO 09:32
PROVIDERS: ATTEND Nurse Practitioner Family
DX: Z12.31 Encounter for screening mammogram for malignant neoplasm of breast (principal)
CPT/HCPCS: 77067